=== PATIENT | male | born 1990 | race Caucasian/White ===

== ENCOUNTER → 2016-08-14 | Outpatient (CLI) | payer OTHER ==
[~2016-08-14] MED LIST: FEXO1TAB46 PO; MULTTAB58 PO; NICO21DI4 TD; NXM/40 PO; PRED10TA PO; PROM25TA9 PO; SYMIN160 INH; UMEC1INH INH; WLLSR150 PO
== END | disposition home or self-care (01) ==
LOC: C.LAB 13:07
PROVIDERS: ATTEND Family Medicine
DX: J06.9 Acute upper respiratory infection, unspecified (principal); R50.9 Fever, unspecified

== ENCOUNTER → 2017-04-24 | Outpatient (CLI) | payer OTHER ==
[~2017-04-24] MED LIST changes: -PROM25TA9 PO
--- NOTE | 2017-04-24 17:44 | DIAGNOSTIC IMAGING REPORT ---
CHEST 2 VIEWS ROUTINE CLINICAL HISTORY: ASTHMA EXACERBATION COMPARISON STUDY: 04/25/2015 FINDINGS: The cardiac and mediastinal contours are normal. There is no evidence of focal pulmonary consolidation. There is no evidence of failure. No pleural effusions are visualized.[ IMPRESSION: No active disease in the chest. Electronically signed by: Jun Harrell M.D. 04/24/2017 5:43 PM Dictated Date/Time: 04/24/2017 5:42 PM
== END | disposition home or self-care (01) ==
LOC: C.RAD 17:23
PROVIDERS: ATTEND Family Medicine
DX: J45.901 Unspecified asthma with (acute) exacerbation (principal)

== ENCOUNTER 2017-04-25 16:00 | Inpatient (IN) | payer OTHER ==
[~2017-04-25] VITALS: Ht 185.4 cm; Wt 100.6 kg
[2017-04-25] VITALS (9 sets, daily range): BP systolic 122–139; BP diastolic 66–79; PULSE 57–88; TEMP 36–37; O2SAT 88–97; Ht 185.4 cm; Wt 100.6 kg
[~2017-04-25 16:00] MED LIST changes: -NICO21DI4 TD; -PRED10TA PO; -WLLSR150 PO
[2017-04-25] MEDS ORDERED: SODIUM CHLORIDE 0.9% 1000ML 1,000 ML IV SCH (17:44)
[2017-04-25] MEDS ORDERED: ALBUT/IPRATROP 3MG/0.5MG NEB 3 ML VIAL INH PRN (17:45)
[2017-04-25] MEDS ORDERED: ACETAMINOPHEN 325 MG TAB PO PRN (17:45)
[2017-04-25] MEDS ORDERED: ONDANSETRON INJ 2 MG/ML 2 ML VIAL IV PRN (17:45)
--- NOTE | 2017-04-25 18:02 | History and Physical ---
History & Physical Date & Time of Service: Apr 25, 2017 at 18:01 Chief Complaint: Asthma Exaceration, Failure Of Op Treatment Primary Care Physician: Owen Campbell M.D. History of Present Illness Source: patient, hospital records, friend 26yo male presents as a direct admit from PCM's office today c/o ongoing and worsening SOB. Pt has a hx of asthma, states multiple exacerbations in past year, but last hospitalization was here around Apr 2015. Never been to ICU or intubated for this. Pt states current sx began on 10Sep with a "cold" c/o feeling weak, subj fever and chills, productive cough and nasal d/c of "green- yellow". Says saw PCM on 12Sep, unknown dx but was put on a prednisone taper and azithromycin. Routine f/u on 14Sep after no sx improvement ( not really worse though). Says an ambulatory pulse-ox went poorly. Advised to continue prednisone, stop azithromycin (thus 3d total), started levaquin. Says overnight last night (14-15Sep) felt worse SOB, tried home albuterol neb without relief. Scheduled f/u appt today (15Sep), noted decreased SpO2 in office, transferred here for further eval. On admit here, pt says he's had SOB at rest for past week, not normal for him ( usually SOB only with exertion). Denies recent fevers (last antipyretic use on day of onset). No concurrent CP, abd pain, N/V/D, known rashes, or other acute c/o. Past Medical/Surgical History Medical Problems: (1) Asthma Status: Chronic (2) GERD (gastroesophageal reflux disease) Status: Chronic 3) Obstructive sleep apnea 4) Nicotine use Family History Cancer Hypertension Lung disease Father: Alive, HTN, intestinal perforation Mother: Alive, asthma, ? fatty liver workup ongoing Social History - Drinks 1-2 beers per night, about 5 nights per week, more on weekends. Last drink around 10Sep. Smoking Status: Current Every Day Smoker (1-2 ppd since age 15) Alcohol Use: occasionally Drug Use: none Marital Status: single Housing status: other Occupational Status: employed (works at [employer]) Immunizations History of Influenza Vaccine: No History of Tetanus Vaccine?: Unknown History of Pneumococcal: No History of Hepatitis B Vaccine: Yes Multi-Drug Resistant Organisms History of MDRO: No Allergies Coded Allergies: No Known Allergies (Verified , 10/28/14) Home Medications Scheduled Budesonide/Formoterol Fumarate (Symbicort 160/4.5 Inhaler), 1 PUFF INH BID Esomeprazole Magnesium (Nexium), 40 MG PO DAILY Fexofenadine Hcl (Hollie), 180 MG PO DAILY Multiple Vitamin (Multivitamin), 1 TAB PO DAILY Review of Systems Constitutional: + fever (subjective early), + chills (subjective early) Respiratory: + cough, + sputum, + wheezing, + shortness of breath, + dyspnea on exertion, + dyspnea at rest Cardiovascular: No chest pain, No edema Abdomen: No pain, No nausea, No vomiting, No diarrhea Musculoskeletal: No joint pain, No muscle pain Neurologic: No weakness, No numbness/tingling Integumentary: No rash Physical Exam Vital Signs Date Time Temp Pulse Resp B/P (MAP) Pulse Ox O2 Delivery O2 Flow Rate FiO2 04/25/17 16:49 37.0 88 18 139/78 91 Nasal Cannula 5.0 General Appearance: WD/WN, no apparent distress (speaking in full sentences) ENT: + pertinent finding (dry oral mucous membranes but no post pharyngeal erythema) Neck: supple Respiratory/Chest: no respiratory distress (not acutely), + rales ( questionable at bilateral bases), + wheezing (diffuse, audible in room on deep inspiration), + pertinent finding (coarse breath sounds throughout) Cardiovascular: regular rate, rhythm, no edema, no murmur Abdomen/GI: normal bowel sounds, non tender, soft Neurologic/Psych: alert, normal mood/affect, oriented x 3 Skin: normal color, warm/dry Diagnostics Laboratory Results Results Past 24 Hours Test 04/25/17 17:44 Range/Units Microbiology Results 04/25/17 Gram Stain, Ordered Pending 04/25/17 Sputum Culture, Ordered Pending Impression Assessment and Plan 26yo male with hx multiple asthma exacerbations directly admitted from PCM's office on 15Sep for worsening SOB. SOB: DDx includes acute asthma exacerbation, PNA vs other underlying infectious issues, COPD, underlying pulmonary disease, theoretically heart issue - Pt does not appear in acute respiratory distress on admit. Is initially requiring 5L NC to maintain SpO2 at 91%. Goal SpO2 over 92%, so titrate NC to that goal. Add oxymask if needed. - Initial thought is this is an asthma exacerbation, so primary tx as such. - Pt has already been on azithromycin and levaquin, though not full courses of either. Afebrile by report and here while not on antipyretics. Lungs sound coarse with questionable rales at base. CXR on 14Sep was clear. Will repeat CXR here due to reports of interval worsening. At time of admit, not starting abx until a clearer picture of infection presents itself. [ ] CXR two view [ ] Sputum cultures [ ] CBC, BMP, Mg on admit for baseline. - Started on duonebs q4h scheduled for 24 hours with reassess before then. Same q2h prn SOB. - Started on methylprednisolone 60 mg IV q6h. PMH KEVIN: Pt notes hx of same but non-compliance at home with CPAP (says doesn't like mask). - Ordered CPAP for here for nighttime use. PMH Nicotine use: 1-2 ppd since age 15 - Discussed multiple problems this is causing/can cause. Counseled to quit. Will provide nicotine patch while in hospital. PMH EtOH: Near-daily use at home. States he hasn't had a drink since 10Sep due to illness, thus not as concerned about DT's. Will monitor. DVT prophy: SCD's and frequent ambulation. If not ambulating much, may need to start rx. Code status: Full code Discussed all the above with attending at time of admission. Please see his addendum for further discussion and plan. - JBONNY, PGY1 Family Medicine Level of Care Telemetry Advanced Directives Existing Living Will: No Existing Power of [place]: No Resuscitation Status FULL RESUSCITATION VTE Prophylaxis VTE Risk Assessment Done? Y/N: Yes Risk Level: Low Given or contraindicated: SCD's (and frequent ambulation) Social Service Consult None Apply Resident Tracking Resident Involvement: Resident Care Provided Care Provided: Adult Hospital Medicine (Admit H&P) History Resident Physician Supervision Note: I was present with Dr. Hernandez during the history and exam. I discussed the case with the resident and agree with the findings and plan as documented in the note. Any exceptions or clarifications are listed here. 26 y/o male w/ ~15 pkyr smoking hx, asthma hx, presents with persistent shortness of breath following a URI-like illness over the last 2 wks which has been treated in the outpatient setting w/ azithromycin/levofloxacin and PO prednisone with minimal improvement. Presently, patient feels SOB and wheezing which is worse than when the illness initially developed and has been this level of SOB since yesterday evening. Reports no fevers since day 1 of illness without antipyretics (though has been on steroids). General Appearance: WD/WN, no apparent distress Ears, Nose, Throat: normal ENT inspection, hearing grossly normal, pharynx normal Respiratory: chest non-tender, no respiratory distress (on 5LNC), rales (b/l LL ? worse on the left), rhonchi, wheezing (diffuse scattered wheezing) Cardiovascular: normal peripheral pulses, regular rate, rhythm, no edema, no murmur Gastrointestinal: normal bowel sounds, non tender, soft, no organomegaly Skin Characteristics: normal color, warm/dry Assessment/Plan 26 y/o male h/o asthma and tobacco use presents for worsening SOB Respiratory distress - likely 2/2 asthma exacerbation v. underlying COPD v. PNA v. other organic lung disease - repeat CXR, CBC, BMP; duonebs, solumedrol KEVIN - strongly encouraged use of CPAP, to which he is agreeable Smoking cessation - NRT while in hospital. Discussed potential options, interested in wellbutrin Alcohol use - last drink 5 days previous, no h/o withdrawals - monitor closely
[2017-04-25 18:43] LABS: COMPLETE YES; HEMATOCRIT 42.1 % (42-52); IG% 0.4 %; LYMPH % 8.2 %; LYMPH ABS # 0.85 K/uL (1.2-3.4); MEAN CELL VOLUME 88.8 fL (80-100); MEAN CORPUSCULAR HEMOGLOBIN 31.4 pg (25-34); MEAN CORPUSCULAR HGB CONC 35.4 g/dl (32-36); MEAN PLATELET VOLUME 8.9 fL (7.4-10.4); MONO % 3.5 %; NEUT % 87.9 %; PLATELET COUNT 227 K/uL (130-400); RED BLOOD COUNT 4.74 M/uL (4.7-6.1); WHITE BLOOD COUNT 10.31 K/uL (4.8-10.8)
[2017-04-25 19:00] LABS: BUN/CREATININE RATIO 13.3 (10-20); CALCIUM 9.2 mg/dl (8.5-10.1); CREATININE 0.97 mg/dl (0.60-1.40); MAGNESIUM 2.1 mg/dl (1.8-2.4); POTASSIUM 3.8 mmol/L (3.5-5.1)
[2017-04-25] MEDS: METHYLPREDNISOLONE IV 60 MG in SYRINGE 0 ML IV SCH ×2 (19:16→23:23)
[2017-04-25] MEDS: ALBUT/IPRATROP 3MG/0.5MG NEB 3 ML VIAL INH SCH ×2 (20:54→23:44)
--- NOTE | 2017-04-25 22:03 | DIAGNOSTIC IMAGING REPORT ---
CHEST 2 VIEWS ROUTINE CLINICAL HISTORY: 26 years-old Male presenting with hx asthma, worsening SOB, eval for infiltrate. TECHNIQUE: PA and lateral views of the chest were obtained. COMPARISON: 04/24/2017. FINDINGS: Multiple overlying external leads degrade image quality. Cardiomediastinal silhouette normal. Lungs and pleural spaces clear. Osseous structures normal. Upper abdomen normal. IMPRESSION: 1. No acute cardiopulmonary disease. Electronically signed by: Gregory Bateman M.D. 04/25/2017 10:01 PM Dictated Date/Time: 04/25/2017 10:00 PM
[2017-04-26] VITALS (17 sets, daily range): BP systolic 117–138; BP diastolic 58–80; PULSE 48–108; TEMP 36.5–36.8; O2SAT 88–98
[2017-04-26] MEDS ORDERED: ALBUT/IPRATROP 3MG/0.5MG NEB 3 ML VIAL INH ONE (02:15)
[2017-04-26] MEDS: ALBUT/IPRATROP 3MG/0.5MG NEB 3 ML VIAL INH SCH ×6 (04:00→23:07)
[2017-04-26] MEDS: METHYLPREDNISOLONE IV 60 MG in SYRINGE 0 ML IV SCH ×3 (05:18→17:33)
--- NOTE | 2017-04-26 08:23 | Family Medicine Progress Note ---
Progress Note Date of Service Apr 26, 2017. Subjective Pt evaluation today including: conversation w/ patient, physical exam, chart review, lab review, review of studies, review of inpatient medication list Pain: None reported by patient PO Intake: No issues with PO intake, regular diet Voiding: no voiding problems Patient reports the shortness of breath is a lot better, reports he cannot tolerate his CPAP at night, and reports he brought up some phlegm but did not collect it for sampling. Reports no dyspnea at rest. Constitutional: No see HPI, No fever, No chills, No sweats, No weight loss, No weakness, No fatigue, No problem reported Respiratory: + cough, + sputum, + wheezing, + dyspnea on exertion, No see HPI, No shortness of breath, No dyspnea at rest, No hemoptysis, No problem reported Cardiovascular: No see HPI, No chest pain, No orthopnea, No PND, No edema, No claudication, No palpitations, No problem reported Abdomen: No see HPI, No pain, No nausea, No vomiting, No diarrhea, No constipation, No GI bleeding, No problem reported Neurologic: No see HPI, No memory loss, No paralysis, No weakness, No numbness/tingling, No vertigo, No balance problems, No problem reported Psychiatric: No see HPI, No depression symptoms, No anhedonism, No anxiety, No insomnia, No substance abuse, No problem reported All Other Systems: Reviewed and Negative Medications Current Inpatient Medications Medications (Trade) Dose Ordered Sig/Mayuri Route Start Time Stop Time Status Last Admin Dose Admin Acetaminophen (Tylenol Tab) 650 mg Q4H PRN PO 04/25/17 17:45 05/25/17 17:44 Ondansetron HCl (Zofran Inj) 4 mg Q6H PRN IV 04/25/17 17:45 05/25/17 17:44 Albuterol/ Ipratropium (Duoneb) 3 ml Q4R INH 04/25/17 20:00 05/25/17 19:59 04/26/17 06:59 3 ML Methylprednisolone Sodium Succinate 60 mg/Syringe 0.96 ml @ 1.5 mls/min Q6 IV 04/25/17 19:00 04/27/17 23:59 04/26/17 05:18 1.5 MLS/MIN Nicotine (Nicoderm Cq 21MG Patch) 1 patch QAM TD 04/26/17 09:00 05/26/17 08:59 Miscellaneous (Remove Nicoderm Patch) 1 ea HS N/A 04/26/17 21:00 05/26/17 20:59 Albuterol/ Ipratropium (Duoneb) 3 ml Q2H PRN INH 04/25/17 17:45 05/25/17 17:44 Objective Vital Signs Date Time Temp Pulse Resp B/P (MAP) Pulse Ox O2 Delivery O2 Flow Rate FiO2 04/26/17 07:01 63 16 92 Mask 10.0 04/26/17 05:28 48 95 100 04/26/17 05:27 60 16 88 BiPAP/CPAP 100 04/26/17 04:00 97 BiPAP 100 04/26/17 04:00 36.6 67 20 117/65 (82) 98 BiPAP 04/26/17 01:00 36.5 65 20 124/66 (85) 98 BiPAP 100 04/25/17 23:59 97 BiPAP 100 04/25/17 23:51 57 95 100 04/25/17 23:44 64 16 88 BiPAP/CPAP 5.0 04/25/17 23:08 36.3 57 18 124/66 (85) 90 CPAP 04/25/17 21:17 61 16 94 Nasal Cannula 5.0 04/25/17 21:17 5.0 04/25/17 20:57 61 16 94 Nasal Cannula 5.0 04/25/17 20:00 92 Nasal Cannula 5.0 04/25/17 19:13 36.0 62 18 122/79 (93) 91 Nasal Cannula 5.0 04/25/17 16:49 37.0 88 18 139/78 91 Nasal Cannula 5.0 Physical Exam General Appearance: WD/WN, no apparent distress Eyes: normal inspection, PERRL, EOMI, sclerae normal ENT: hearing grossly normal, pharynx normal Neck: supple, no adenopathy, no JVD, no carotid bruits, trachea midline Respiratory/Chest: chest non-tender, + decreased breath sounds, + wheezing Cardiovascular: regular rate, rhythm, no edema, no JVD, no murmur Abdomen: normal bowel sounds, non tender, soft, no organomegaly Extremities: normal range of motion, non-tender, normal inspection, no pedal edema Neurologic/Psychiatric: alert, normal mood/affect, oriented x 3 Skin: normal color, warm/dry Laboratory Results 04/25/17 18:21 Red Blood Count 4.74, Mean Corpuscular Volume 88.8, Mean Corpuscular Hemoglobin 31.4, Mean Corpuscular Hemoglobin Concent 35.4, Mean Platelet Volume 8.9, Neutrophils (%) (Auto) 87.9, Lymphocytes (%) (Auto) 8.2, Monocytes (%) (Auto) 3.5, Eosinophils (%) (Auto) 0.0, Basophils (%) (Auto) 0.0, Neutrophils # (Auto) 9.06, Lymphocytes # (Auto) 0.85, Monocytes # (Auto) 0.36, Eosinophils # (Auto) 0.00, Basophils # (Auto) 0.00 04/25/17 18:21 Test 04/25/17 18:21 White Blood Count 10.31 K/uL (4.8-10.8) Red Blood Count 4.74 M/uL (4.7-6.1) Hemoglobin 14.9 g/dL (14.0-18.0) Hematocrit 42.1 % (42-52) Mean Corpuscular Volume 88.8 fL (80-100) Mean Corpuscular Hemoglobin 31.4 pg (25-34) Mean Corpuscular Hemoglobin Concent 35.4 g/dl (32-36) Platelet Count 227 K/uL (130-400) Mean Platelet Volume 8.9 fL (7.4-10.4) Neutrophils (%) (Auto) 87.9 % Lymphocytes (%) (Auto) 8.2 % Monocytes (%) (Auto) 3.5 % Eosinophils (%) (Auto) 0.0 % Basophils (%) (Auto) 0.0 % Neutrophils # (Auto) 9.06 K/uL (1.4-6.5) Lymphocytes # (Auto) 0.85 K/uL (1.2-3.4) Monocytes # (Auto) 0.36 K/uL (0.11-0.59) Eosinophils # (Auto) 0.00 K/uL (0-0.5) Basophils # (Auto) 0.00 K/uL (0-0.2) RDW Standard Deviation 40.8 fL (36.4-46.3) RDW Coefficient of Variation 12.6 % (11.5-14.5) Immature Granulocyte % (Auto) 0.4 % Immature Granulocyte # (Auto) 0.04 K/uL (0.00-0.02) Anion Gap 9.0 mmol/L (3-11) Est Creatinine Clear Calc Drug Dose 139.7 ml/min Estimated GFR () 123.5 Estimated GFR (Non- 106.6 BUN/Creatinine Ratio 13.3 (10-20) Calcium Level 9.2 mg/dl (8.5-10.1) Magnesium Level 2.1 mg/dl (1.8-2.4) Assessment and Plan 26yo male with hx multiple asthma exacerbations directly admitted from PCP's office on Apr for worsening SOB. 1) SOB: - DDx includes acute asthma exacerbation, pneumonia vs other underlying infectious issues, COPD, underlying pulmonary disease, theoretically heart issue - Pt did not appear in acute respiratory distress on admit. Initially required 5L NC to maintain SpO2 at 91%. Oxymask added overnight since SpO2 was 88% on NC. - Initial thought is this was an asthma exacerbation, so primary tx as such. - Had up to 10L O2 on oxymask with continuing wheeze in lower lobes of the lungs - By end of day on 04/26 (sat), patient was wheezy on RA with SpO2 of 92 - Patient afebrile on no antipyretics, no elevated WCC, with 2x normal CXR; patient had been on azithromycin and levaquin but did not complete course; no indication to commence Abx at this time. - Sputum cultures pending - Started on duonebs q4h scheduled for 24 hours. Same q2h prn SOB. - Started on methylprednisolone 60 mg IV q6h. 2) PMH KEVIN: Pt notes hx of same but non-compliance at home with CPAP (says doesn 't like mask). - Patient not tolerating CPAP here while in hospital. 2) PMH Nicotine use: 1-2 ppd since age 15 - Discussed multiple problems this is causing/can cause. Counseled to quit. Will provide nicotine patch while in hospital. - Open to discuss options to help him quit - Will discuss welbutrin for mood and smoking cessation tomorrow 4) PMH EtOH: Near-daily use at home. States he hasn't had a drink since 10Sep due to illness, thus not as concerned about DT's. Will monitor. DVT proph: SCD's and frequent ambulation. Code status: Full code DISPO: Remains on telemetry Continued [facility] stay due to: abnormal vital signs Resident Tracking Resident Involvement: Resident Care Provided Care Provided: Adult Hospital Medicine History Resident Physician Supervision Note: I was present with Dr. Hensley during the history and exam. I discussed the case with the resident and agree with the findings and plan as documented in the note. Any exceptions or clarifications are listed here. Pt seen and examined at bedside. Appears mildly agitation/anxious. Reports breathing is improved from prior to admission jose w/ O2 support but is feeling agitated because he feels stuck here while he recovers. Denies any relationship to not smoking presently. 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 Present complaints look similar. General Appearance: WD/WN, no apparent distress Respiratory: chest non-tender, no respiratory distress, decreased breath sounds , wheezing (air movement somewhat improved) Cardiovascular: normal peripheral pulses, regular rate, rhythm, no edema, no murmur Gastrointestinal: normal bowel sounds, non tender, soft, no organomegaly Assessment/Plan 26 y/o male h/o asthma and tobacco use presents for worsening SOB Reactive airway disease (asthma hx v. COPD) - continue steroids, will taper tomorrow IV, continue q4h neb treatments, taper O2 as tolerated KEVIN - CPAP at night Agitation w/ underlying psychiatric hx - minimal improvement w/ 1xPRN lorazepam , monitor, reorient and ?medicate Smoking cessation - NRT while in hospital. Discussed potential options, interested in wellbutrin after discharge Alcohol use - last drink 5 days previous, no h/o withdrawals - monitor closely
[2017-04-26] MEDS: NICOTINE 21 MG/24 HR TDSY TD SCH (08:28)
[2017-04-26] MEDS ORDERED: LORAZEPAM 0.5 MG TAB PO STA ×2 (10:59→19:47)
[2017-04-26] MEDS ORDERED: PANTOprazole SOD 40 MG TAB PO ONE (11:30)
[2017-04-26] MEDS: PANTOprazole SOD 40 MG TAB PO SCH (19:33)
[2017-04-26] MEDS ORDERED: NURSING VERBAL MED ORDER ONE (19:45)
[2017-04-27] VITALS (16 sets, daily range): BP systolic 116–138; BP diastolic 61–79; PULSE 68–119; TEMP 36.4–37; O2SAT 90–99
[2017-04-27] MEDS: METHYLPREDNISOLONE IV 60 MG in SYRINGE 0 ML IV SCH ×2 (00:14→05:38)
[2017-04-27] MEDS: ALBUT/IPRATROP 3MG/0.5MG NEB 3 ML VIAL INH SCH ×6 (03:43→23:10)
[2017-04-27] MEDS: PANTOprazole SOD 40 MG TAB PO SCH ×2 (07:42→19:19)
[2017-04-27] MEDS: NICOTINE 21 MG/24 HR TDSY TD SCH (07:42)
[2017-04-27 10:45] LABS: MEAN CELL VOLUME 91.1 fL (80-100); MEAN CORPUSCULAR HEMOGLOBIN 29.9 pg (25-34); MEAN CORPUSCULAR HGB CONC 32.8 g/dl (32-36); PLATELET COUNT 257 K/uL (130-400); RED BLOOD COUNT 4.72 M/uL (4.7-6.1); WHITE BLOOD COUNT 16.02 K/uL (4.8-10.8)
[2017-04-27 11:14] LABS: BUN/CREATININE RATIO 12.4 (10-20); CALCIUM 8.8 mg/dl (8.5-10.1); CREATININE 1.2 mg/dl (0.60-1.40); POTASSIUM 4.2 mmol/L (3.5-5.1)
--- NOTE | 2017-04-27 15:35 | Family Medicine Progress Note ---
Progress Note Date of Service Apr 27, 2017. Subjective Pt evaluation today including: conversation w/ patient, physical exam, chart review, lab review, review of inpatient medication list Voiding: no voiding problems Patient looking much improved today at bedside. Reports decreased anxiety, improved breathing capacity, on room air, tolerated CPAP well overnight. Constitutional: No fever, No chills, No sweats, No weight loss, No weakness , No fatigue, No problem reported ENT: No hearing loss, No sore throat, No trouble swallowing Respiratory: No cough, No sputum, No wheezing, No shortness of breath, No dyspnea on exertion, No dyspnea at rest, No hemoptysis Cardiovascular: No chest pain, No orthopnea, No PND, No edema, No claudication, No palpitations Abdomen: No nausea, No vomiting, No diarrhea, No constipation Musculoskeletal: No joint pain, No muscle pain Male : No dysuria Neurologic: No numbness/tingling Psychiatric: + anxiety, + substance abuse (cigarettes and alcohol, 5-6 drinks twice weekly), + problem reported (agitation) Medications Current Inpatient Medications Medications (Trade) Dose Ordered Sig/Mayuri Route Start Time Stop Time Status Last Admin Dose Admin Acetaminophen (Tylenol Tab) 650 mg Q4H PRN PO 04/25/17 17:45 05/25/17 17:44 Ondansetron HCl (Zofran Inj) 4 mg Q6H PRN IV 04/25/17 17:45 05/25/17 17:44 Albuterol/ Ipratropium (Duoneb) 3 ml Q4R INH 04/25/17 20:00 05/25/17 19:59 04/27/17 18:58 3 ML Nicotine (Nicoderm Cq 21MG Patch) 1 patch QAM TD 04/26/17 09:00 05/26/17 08:59 04/27/17 07:42 1 PATCH Miscellaneous (Remove Nicoderm Patch) 1 ea HS N/A 04/26/17 21:00 05/26/17 20:59 04/27/17 19:19 1 EA Albuterol/ Ipratropium (Duoneb) 3 ml Q2H PRN INH 04/25/17 17:45 05/25/17 17:44 Pantoprazole Sodium (Protonix Tab) 40 mg BID PO 04/26/17 21:00 05/26/17 20:59 04/27/17 19:19 40 MG Bupropion HCl (Wellbutrin-Sr Tab) 150 mg BID PO 04/27/17 21:00 05/27/17 20:59 04/27/17 19:19 150 MG Prednisone (PredniSONE TAB) 60 mg DAILY PO 04/28/17 09:00 05/28/17 08:59 Objective Vital Signs Date Time Temp Pulse Resp B/P (MAP) Pulse Ox O2 Delivery O2 Flow Rate FiO2 04/27/17 19:39 37.0 112 18 117/65 (82) 91 Room Air 04/27/17 18:58 70 16 90 Room Air 04/27/17 16:08 36.6 80 18 129/78 (95) 95 04/27/17 16:00 Room Air 04/27/17 15:11 111 18 91 Room Air 04/27/17 12:16 36.4 119 18 138/79 (98) 92 Room Air 04/27/17 12:00 Room Air 04/27/17 11:20 76 16 90 Room Air 04/27/17 08:00 Room Air 04/27/17 07:45 78 96 Room Air 04/27/17 07:44 78 18 96 Room Air 04/27/17 07:41 36.6 77 18 116/61 (79) 93 Room Air 04/27/17 04:00 Room Air 04/27/17 04:00 36.7 76 18 123/70 (87) 94 CPAP 04/27/17 03:45 70 93 40 04/27/17 03:43 70 18 94 BiPAP/CPAP 40 04/27/17 01:30 93 40 04/26/17 23:59 Room Air 04/26/17 23:08 71 20 91 Room Air 04/26/17 23:05 36.7 72 18 123/62 (82) 91 Room Air Physical Exam General Appearance: WD/WN, no apparent distress Eyes: normal inspection, PERRL, EOMI ENT: hearing grossly normal, pharynx normal Neck: supple, no adenopathy Respiratory/Chest: chest non-tender, lungs clear, normal breath sounds, no respiratory distress, no accessory muscle use Cardiovascular: regular rate, rhythm, no edema, no JVD, no murmur Abdomen: normal bowel sounds, non tender, soft, no organomegaly Extremities: normal range of motion, no pedal edema, no calf tenderness Neurologic/Psychiatric: air conditioning manager II-XII nml as tested, alert, normal mood/affect, oriented x 3 Skin: normal color, warm/dry, no rash Laboratory Results 04/27/17 10:21 04/27/17 10:21 Test 04/27/17 10:21 Red Blood Count 4.72 M/uL (4.7-6.1) Mean Corpuscular Volume 91.1 fL (80-100) Mean Corpuscular Hemoglobin 29.9 pg (25-34) Mean Corpuscular Hemoglobin Concent 32.8 g/dl (32-36) RDW Standard Deviation 42.1 fL (36.4-46.3) RDW Coefficient of Variation 12.7 % (11.5-14.5) Mean Platelet Volume 9.0 fL (7.4-10.4) Anion Gap 12.0 mmol/L (3-11) Est Creatinine Clear Calc Drug Dose 113.0 ml/min Estimated GFR () 95.5 Estimated GFR (Non- 82.4 BUN/Creatinine Ratio 12.4 (10-20) Calcium Level 8.8 mg/dl (8.5-10.1) Assessment and Plan 26yo male with hx multiple asthma exacerbations directly admitted from PCP's office on Apr for worsening SOB. 1) SOB: - Likely acute asthma exacerbation. - Currently on room air, SpO2 91-96% - Lungs sound greatly improved, mild restriction of airways - Patient afebrile on no antipyretics, no elevated WCC, with 2x normal CXR; no indication to commence Abx at this time. - Sputum cultures found to have normal melissa. - Transitioned to 60 mg solumedrol IV q12; transition to oral prednisone 60 mg daily if tolerates decreased IV dose. - Repeat labs today appropriate for steroid use; repeat labs tomorrow AM - Patient sees Dr. Morales's (pulm) PA Roselia Perez; states he missed appt while in hospital and can we help get him back on schedule? - Recommend PFT testing as outpatient once exacerbation resolved and he is off steroids. - Patient to follow up with either Dr. Hensley or Dr. Hernandez at [facility] clinic Friday pm. 2) Agitation - Started yesterday; may be related to lack of cigarettes or alcohol or his baseline - Wellbutrin will likely help with baseline anxiety - Has required 2x 0.5 mg ativan yesterday prn 3) PMH KEVIN: - Patient tolerated CPAP better last night; continue tonight 4) PMH Nicotine use: 1-2 ppd since age 15 - Discussed multiple problems this is causing/can cause. Counseled to quit. Will provide nicotine patch while in hospital. - Open to discuss options to help him quit - Reports he also "vapes" and makes his own mixes for his vaporizer; discussed this may be used as stepping stone to help quit but should not be considered replacement. - Started on wellbutrin SR 150 bid; discussed potential side effects, including increased risk of suicidality, discussed if this happens he should stop medication and call physician/suicide help line/911. Discussed that he should not drink alcohol while on this medication. - Reiterated to patient that symptoms really improved when he was no longer able to smoke - Discussed that he should also not use dip/chewing tobacco with his friends. 5) PMH EtOH: Near-daily use at home. States he hasn't had a drink since 10Sep due to illness, thus not as concerned about DT's. History Resident Physician Supervision Note: I was present with Dr. Hensley during the history and exam. I discussed the case with the resident and agree with the findings and plan as documented in the note. Any exceptions or clarifications are listed here. Pt seen and examined at bedside. Pt reports improved shortness of breath and decreased frequency and productivity of cough. Ambulating without O2 at present. NRT decreased overt cravings. Agitation persists per family in room and patient agrees w/ same. Is open to using wellbutrin for both quitting and underlying mood disorder with close outpatient followup. General Appearance: WD/WN, no apparent distress Respiratory: chest non-tender, no respiratory distress, decreased breath sounds , wheezing (diffusely, mildly improved from previous) Cardiovascular: normal peripheral pulses, regular rate, rhythm, no edema, no murmur Neurologic/Psychiatric: air conditioning manager II-XII nml as tested, alert, normal mood/affect, oriented x 3 Assessment/Plan 26 y/o male h/o asthma and tobacco use presents for worsening SOB. There is concern, especially with his rapid inpatient improvement, that a lion's share of his symptoms are resulting from his persistent smoking and I have told him as much. He understands but his motivation for quitting is variable. Reactive airway disease (asthma hx v. COPD) - taper to PO prednisone in AM, continue q4h neb treatments, taper O2 as tolerated KEVIN - CPAP at night Agitation w/ underlying psychiatric hx - rec intermittent lorazepam, encourage starting wellbutrin inpatient Smoking cessation - NRT while in hospital. Wellbutrin for cessation aid. Has tried chantix and cold turkey in the past. Alcohol use - last drink 5 days previous, no h/o withdrawals - monitor closely Resident Tracking Resident Involvement: Resident Care Provided Care Provided: Adult Hospital Medicine
[2017-04-27] MEDS ORDERED: METHYLPREDNISOLONE IV 60 MG in SYRINGE 0 ML IV SCH (17:00)
[2017-04-27] MEDS: BuPROPion SR 150 MG TABCR PO SCH (19:19)
[2017-04-28] VITALS (12 sets, daily range): BP systolic 121–145; BP diastolic 65–78; PULSE 16–88; TEMP 36.7–36.8; O2SAT 90–95
[2017-04-28] MEDS: ALBUT/IPRATROP 3MG/0.5MG NEB 3 ML VIAL INH SCH ×6 (03:24→23:34)
--- NOTE | 2017-04-28 05:38 | Family Medicine Progress Note ---
Progress Note Date of Service Apr 28, 2017. Subjective Pt evaluation today including: conversation w/ patient, physical exam, chart review, lab review, review of studies Found pt sitting up in bed, speaking comfortably without supplemental oxygen in full sentences, in NAD. Says he tried his CPAP overnight. Is willing to try Wellbutrin to help quit smoking. Is also willing to f/u this week with PCM. Denies any overnight issues or acute concerns, including any present CP, SOB, abd pain. Constitutional: No fever, No weight loss Respiratory: + cough, + shortness of breath (improving/resolved) Cardiovascular: No chest pain, No edema Abdomen: No pain, No nausea, No vomiting, No diarrhea Medications Current Inpatient Medications Medications (Trade) Dose Ordered Sig/Mayuri Route Start Time Stop Time Status Last Admin Dose Admin Acetaminophen (Tylenol Tab) 650 mg Q4H PRN PO 04/25/17 17:45 05/25/17 17:44 Ondansetron HCl (Zofran Inj) 4 mg Q6H PRN IV 04/25/17 17:45 05/25/17 17:44 Albuterol/ Ipratropium (Duoneb) 3 ml Q4R INH 04/25/17 20:00 05/25/17 19:59 04/28/17 06:59 3 ML Nicotine (Nicoderm Cq 21MG Patch) 1 patch QAM TD 04/26/17 09:00 05/26/17 08:59 04/28/17 07:41 1 PATCH Miscellaneous (Remove Nicoderm Patch) 1 ea HS N/A 04/26/17 21:00 05/26/17 20:59 04/27/17 19:19 1 EA Albuterol/ Ipratropium (Duoneb) 3 ml Q2H PRN INH 04/25/17 17:45 05/25/17 17:44 Pantoprazole Sodium (Protonix Tab) 40 mg BID PO 04/26/17 21:00 05/26/17 20:59 04/28/17 07:41 40 MG Bupropion HCl (Wellbutrin-Sr Tab) 150 mg BID PO 04/27/17 21:00 05/27/17 20:59 04/28/17 07:41 150 MG Prednisone (PredniSONE TAB) 60 mg DAILY PO 04/28/17 09:00 05/28/17 08:59 04/28/17 07:41 60 MG Objective Vital Signs Date Time Temp Pulse Resp B/P (MAP) Pulse Ox O2 Delivery O2 Flow Rate FiO2 04/28/17 08:15 Room Air 04/28/17 08:02 36.7 84 14 126/72 (90) 90 Room Air 04/28/17 06:59 81 16 91 Room Air 04/28/17 04:23 36.7 74 20 124/70 (88) 94 CPAP 04/28/17 04:00 Room Air 04/28/17 03:24 75 16 95 BiPAP/CPAP 40 04/28/17 00:00 36.8 72 20 121/65 (83) 93 CPAP 04/27/17 23:59 Room Air 04/27/17 23:20 80 94 40 04/27/17 23:10 80 16 93 Room Air 04/27/17 20:00 Room Air 04/27/17 19:39 37.0 112 18 117/65 (82) 91 Room Air 04/27/17 18:58 70 16 90 Room Air 04/27/17 16:08 36.6 80 18 129/78 (95) 95 04/27/17 16:00 Room Air 04/27/17 15:11 111 18 91 Room Air 04/27/17 12:16 36.4 119 18 138/79 (98) 92 Room Air 04/27/17 12:00 Room Air 04/27/17 11:20 76 16 90 Room Air Physical Exam General Appearance: no apparent distress Respiratory/Chest: no respiratory distress, + wheezing (expiratory wheezing without congestion/rales throughout (improved from 15Sep)) Cardiovascular: regular rate, rhythm, no edema, no murmur Abdomen: normal bowel sounds, non tender, soft Laboratory Results 04/28/17 05:54 04/28/17 05:54 Test 04/28/17 05:54 Red Blood Count 4.82 M/uL (4.7-6.1) Mean Corpuscular Volume 91.9 fL (80-100) Mean Corpuscular Hemoglobin 30.5 pg (25-34) Mean Corpuscular Hemoglobin Concent 33.2 g/dl (32-36) RDW Standard Deviation 44.1 fL (36.4-46.3) RDW Coefficient of Variation 13.1 % (11.5-14.5) Mean Platelet Volume 9.0 fL (7.4-10.4) Anion Gap 7.0 mmol/L (3-11) Est Creatinine Clear Calc Drug Dose 144.3 ml/min Estimated GFR () 128.3 Estimated GFR (Non- 110.7 BUN/Creatinine Ratio 17.8 (10-20) Calcium Level 9.1 mg/dl (8.5-10.1) Assessment and Plan 26yo male with hx multiple asthma exacerbations directly admitted from PCM's office on 15Sep for worsening SOB. Acute Asthma exacerbation - Started on duonebs q4h scheduled for 24 hours with reassess before then. Same q2h prn SOB. Started on methylprednisolone 60 mg IV q6h. Taper to PO prednisone beginning 18Sep. - Was initially requiring 5L NC to maintain SpO2 at 91% with some subsequent oxymask use (up to 10L). Transitioned off with recent SpO2 92% on room air. - Pt has already been on azithromycin and levaquin as outpatient before getting admitted, though not full courses of either. As inpt, pt remained afebrile, off antipyretics, and CXR x 2 clear so no abx started. Leukocytosis on 17Sep likely due to demargination. - 16Sep Sputum gram stain was moderate normal melissa. Sputum culture cancelled. - pulse ox still around 90-91%. follow overnight. KEVIN: Pt notes hx of same but non-compliance at home with CPAP (says doesn't like mask). - Ordered CPAP for here for nighttime use with some recent mask toleration. Will encourage same as outpt upon eventual d/c. Nicotine use: 1-2 ppd since age 15. Discussed multiple problems this is causing /can cause. Counseled to quit. Provided nicotine patch while in hospital. Inpt team discussed Wellbutrin use for mood and smoking cessation. Reportedly has treid chantix and cold turkey in the past. - Started Welbutrin-SR 150 mg BID as inpt. EtOH use: Near-daily use at home. States he hasn't had a drink since 10Sep due to illness, thus not as concerned about DT's. Will monitor. 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 Present complaints look similar. Noted to have some agitation while inpt. - Tx here with ativan prn (single dose needed thus far) along with reorientation. - ? sec to hypoxia - follow. DVT prophy: SCD's and frequent ambulation. If not ambulating much, may need to start rx. Code status: Full code Resident Tracking Resident Involvement: Resident Care Provided Care Provided: Adult Hospital Medicine (inpt rounds) Reviewed: Pt Seen/Exam by Me History breathing much better but still not at baseline Constitutional: denies: fever Cardiovascular: denies chest pain Gastrointestinal/Abdominal: negative: abdominal pain General Appearance: mild distress (conversation dyspnea) Respiratory: respiratory distress (conversational), decreased breath sounds, wheezing (occasional) Cardiovascular: regular rate, rhythm Neurologic/Psychiatric: alert, oriented x 3 Skin Characteristics: warm/dry Assessment/Plan Resident Physician Supervision Note: I was present with Dr. Hernandez in bedside. I verified the fonseca history and physical, reviewed labs and image studies, discussed the case with the resident and agree with the findings and care plan.
[2017-04-28 06:20] LABS: HEMATOCRIT 44.3 % (42-52); MEAN CELL VOLUME 91.9 fL (80-100); MEAN CORPUSCULAR HEMOGLOBIN 30.5 pg (25-34); MEAN CORPUSCULAR HGB CONC 33.2 g/dl (32-36); PLATELET COUNT 243 K/uL (130-400); RED BLOOD COUNT 4.82 M/uL (4.7-6.1)
[2017-04-28 07:04] LABS: BUN/CREATININE RATIO 17.8 (10-20); CALCIUM 9.1 mg/dl (8.5-10.1); CREATININE 0.94 mg/dl (0.60-1.40); POTASSIUM 4.3 mmol/L (3.5-5.1)
[2017-04-28] MEDS: NICOTINE 21 MG/24 HR TDSY TD SCH (07:41)
[2017-04-28] MEDS: PANTOprazole SOD 40 MG TAB PO SCH ×2 (07:41→21:34)
[2017-04-28] MEDS: BuPROPion SR 150 MG TABCR PO SCH ×2 (07:41→21:34)
--- NOTE | 2017-04-28 15:59 | Discharge Summary ---
Discharge Summary Date of Service Apr 28, 2017. (Josh. Hernandez M.D.) Discharge Summary Admission Date: Apr 25, 2017 at 17:59 Discharge Disposition: Home Principal Diagnosis: Asthma exacerbation Problems/Secondary Diagnoses: - Nicotine use Immunizations: Have You Had Influenza Vaccine: No History of Tetanus Vaccine?: Unknown History of Pneumococcal: No History of Hepatitis B Vaccine: Yes Procedures: [id number] CXR two views: No acute cardiopulmonary disease. Consultations: - None (Josh. Hernandez M.D.) Medication Reconciliation New Medications: Prednisone (Prednisone) 10 Mg Tab 10 MG PO UD for 12 Days, #23 TAB 0 Refills Take 4 tablets x 3 days, then 2 tablets x 3 days, then 1 tablet x 3 days, then a half-tablet for three days. Bupropion HCl (Bupropion HCl Sr) 150 Mg Tabcr 150 MG PO BID for 30 Days, #60 TAB 0 Refills Nicotine (Nicoderm Cq) 21 Mg/24 Hr Dis 1 PATCH TD QAM for 30 Days, #30 PATCH 0 Refills Continued Medications: Budesonide/Formoterol Fumarate (Symbicort 160/4.5 Inhaler) 120 Puffs/ Aero 1 PUFF INH BID Esomeprazole Magnesium (Nexium) 40 Mg Capcr 40 MG PO DAILY Fexofenadine Hcl (Hollie) 180 Mg Tab 180 MG PO DAILY Multiple Vitamin (Multivitamin) 1 Tab Tab 1 TAB PO DAILY Discharge Exam Review of Systems: Constitutional: No fever, No chills Respiratory: + cough (much improved), + shortness of breath (much improved) , No dyspnea at rest Cardiovascular: No chest pain, No edema Abdomen: No nausea, No vomiting, No diarrhea, No constipation Physical Exam: General Appearance: WD/WN, no apparent distress Respiratory/Chest: no respiratory distress, no accessory muscle use, + wheezing (much improved generalized wheezing), + pertinent finding (no other adventitious sounds appreciated) Cardiovascular: regular rate, rhythm, no edema, no murmur Abdomen / GI: normal bowel sounds, non tender, soft Extremities: no calf tenderness, normal range of motion Neurologic/Psychiatric: alert (Josh. Hernandez M.D.) breathing improving. able to walk around without any difficulty Review of Systems: Constitutional: No fever Cardiovascular: No chest pain Abdomen: No pain Physical Exam: General Appearance: no apparent distress Respiratory/Chest: + decreased breath sounds (but better air entry than yesterday. no wheezes) Cardiovascular: regular rate, rhythm Neurologic/Psychiatric: alert, oriented x 3 Skin: warm/dry (Nicole Mobley M.D.) Hospital Course History of Present Illness from Admission on [id number] Source: patient, hospital records, friend 26yo male presents as a direct admit from PCM's office today c/o ongoing and worsening SOB. Pt has a hx of asthma, states multiple exacerbations in past year, but last hospitalization was here around Apr 2015. Never been to ICU or intubated for this. Pt states current sx began on 10Sep with a "cold" c/o feeling weak, subj fever and chills, productive cough and nasal d/c of "green- yellow". Says saw PCM on 12Sep, unknown dx but was put on a prednisone taper and azithromycin. Routine f/u on 14Sep after no sx improvement ( not really worse though). Says an ambulatory pulse-ox went poorly. Advised to continue prednisone, stop azithromycin (thus 3d total), started levaquin. Says overnight last night (14-15Sep) felt worse SOB, tried home albuterol neb without relief. Scheduled f/u appt today (15Sep), noted decreased SpO2 in office, transferred here for further eval. On admit here, pt says he's had SOB at rest for past week, not normal for him ( usually SOB only with exertion). Denies recent fevers (last antipyretic use on day of onset). No concurrent CP, abd pain, N/V/D, known rashes, or other acute c/o. Plan on day of discharge [id number] 26yo male with hx multiple asthma exacerbations directly admitted from PCM's office on 15Sep for worsening SOB. Acute asthma exacerbation: DDx includes acute asthma exacerbation, PNA vs other underlying infectious issues, COPD, underlying pulmonary disease, theoretically heart issue. Primary tx was for asthma exacerbation. Pt did not appear in acute respiratory distress on admit. Started on duonebs q4h scheduled for 24 hours. Same duonebs ordered q2h prn SOB, though pt did not require any. Started on methylprednisolone 60 mg IV q6h. Taper to PO prednisone beginning 18Sep, completed five days of steroids on 19Sep, will begin taper as outpt. Was initially requiring 5L NC to maintain SpO2 at 91% with some subsequent oxymask use (up to 10L). Transitioned off, did ambulatory SpO2 check on 18Sep and was noted 90-91% on room air during exertion. Goal ideally would be over 92 % with ambulation, but was noted to have 92% on rest at time of d/c. Pt had already been on azithromycin and levaquin, though not full courses of either. As inpt, pt remained afebrile, off antipyretics, and CXR x 2 clear so no abx started. Leukocytosis on 17Sep likely due to demargination. - 16Sep Sputum gram stain was moderate normal melissa. Sputum culture cancelled. - Provided written Rx for nebulizer setup, two per month, with six refills for pts home use. - Pt may have been on Incruse Ellipta in the past. Suggest eval for future use at [facility] f/u. KEVIN: Pt notes hx of same but non-compliance at home with CPAP (says doesn't like mask). Pt says hes been using CPAP in hospital for nighttime use with some mask toleration. - Encouraged same as outpt upon eventual d/c. Nicotine use: 1-2 ppd since age 15. Discussed multiple problems this is causing /can cause. Counseled to quit. Provided nicotine patch while in hospital, rx' ed same for home. Inpt team discussed Wellbutrin use for mood and smoking cessation. Reportedly has tried chantix and cold turkey in the past. Started Wellbutrin-SR 150 mg BID as inpt, rx'ed same for home. EtOH: Near-daily use at home. States he hasn't had a drink since 10Sep due to illness, thus not as concerned about DT's. Provided some counseling against excessive near-daily use. Will monitor. 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 Present complaints look similar. Noted to have some agitation while inpt. Tx here with ativan single dose without recurrent issues of the same. Plan for close f/u as outpt with PCM for further care of all the above. Total Time Spent: Greater than 30 minutes This includes examination of the patient, discharge planning, medication reconciliation, and communication with other providers. (Josh. Hernandez M.D.) Resident Physician Supervision Note: I was present with Dr. Hernandez in bedside. I verified the fonseca history and physical, reviewed labs and image studies, discussed the case with the resident and agree with the findings and care plan. Total Time Spent: Greater than 30 minutes (40) (Nicole Mobley M.D.) Discharge Instructions Please refer to the electronic Patient Visit Report (Discharge Instructions) for additional information. (Josh. Hernandez M.D.) Follow-Up - Primary care provider (Josh. Hernandez M.D.) Additional Copies To Owen Campbell M.D.
[2017-04-29 00:12] VITALS: BP 124/65; PULSE 66; TEMP 36.7; O2SAT 96
[2017-04-29 03:05] VITALS: BP 127/70; PULSE 70; TEMP 36.9; O2SAT 95
[2017-04-29 03:15] VITALS: PULSE 66; O2SAT 96
[2017-04-29] MEDS: ALBUT/IPRATROP 3MG/0.5MG NEB 3 ML VIAL INH SCH ×2 (03:15→07:04)
--- NOTE | 2017-04-29 05:31 | Family Medicine Progress Note ---
Progress Note Date of Service Apr 29, 2017. Subjective Pt evaluation today including: conversation w/ patient, physical exam, chart review, lab review Found pt sitting up, getting a neb, speaking easily in full sentences. Denies acute concerns, overnight events, CP, baseline SOB. Constitutional: No fever, No chills Respiratory: + shortness of breath (much improved), + dyspnea on exertion ( much improved), No cough Cardiovascular: No chest pain, No edema Abdomen: No pain, No nausea, No vomiting, No diarrhea Medications Current Inpatient Medications Medications (Trade) Dose Ordered Sig/Mayuri Route Start Time Stop Time Status Last Admin Dose Admin Acetaminophen (Tylenol Tab) 650 mg Q4H PRN PO 04/25/17 17:45 05/25/17 17:44 Ondansetron HCl (Zofran Inj) 4 mg Q6H PRN IV 04/25/17 17:45 05/25/17 17:44 Albuterol/ Ipratropium (Duoneb) 3 ml Q4R INH 04/25/17 20:00 05/25/17 19:59 04/29/17 07:04 3 ML Nicotine (Nicoderm Cq 21MG Patch) 1 patch QAM TD 04/26/17 09:00 05/26/17 08:59 04/29/17 07:46 1 PATCH Miscellaneous (Remove Nicoderm Patch) 1 ea HS N/A 04/26/17 21:00 05/26/17 20:59 04/28/17 21:00 1 EA Albuterol/ Ipratropium (Duoneb) 3 ml Q2H PRN INH 04/25/17 17:45 05/25/17 17:44 Pantoprazole Sodium (Protonix Tab) 40 mg BID PO 04/26/17 21:00 05/26/17 20:59 04/29/17 07:45 40 MG Bupropion HCl (Wellbutrin-Sr Tab) 150 mg BID PO 04/27/17 21:00 05/27/17 20:59 04/29/17 07:45 150 MG Prednisone (PredniSONE TAB) 60 mg DAILY PO 04/28/17 09:00 05/28/17 08:59 04/29/17 07:45 60 MG Objective Vital Signs Date Time Temp Pulse Resp B/P (MAP) Pulse Ox O2 Delivery O2 Flow Rate FiO2 04/29/17 07:17 36.6 89 18 123/79 (94) 94 Nebulizer 04/29/17 07:04 74 16 92 Room Air 04/29/17 04:05 BiPAP 40 04/29/17 03:15 66 16 96 BiPAP/CPAP 40.0 04/29/17 03:05 36.9 70 16 127/70 (89) 95 04/29/17 00:12 36.7 66 22 124/65 (84) 96 BiPAP 40 04/29/17 00:00 BiPAP 40 04/28/17 23:35 70 16 95 BiPAP/CPAP 40.0 04/28/17 23:35 95 40 04/28/17 20:00 Room Air 04/28/17 19:54 36.7 74 16 130/68 (88) 93 Room Air 04/28/17 19:04 72 16 93 Room Air 04/28/17 16:15 Room Air 04/28/17 16:02 36.7 74 20 129/78 (95) 93 Room Air 04/28/17 15:18 88 16 93 Room Air 04/28/17 12:15 Room Air 04/28/17 11:14 78 16 94 Room Air 04/28/17 11:02 36.7 67 14 145/75 (98) 92 Room Air 04/28/17 09:59 Room Air 04/28/17 08:15 Room Air 04/28/17 08:02 36.7 84 14 126/72 (90) 90 Room Air Physical Exam General Appearance: WD/WN, no apparent distress Respiratory/Chest: lungs clear, normal breath sounds, no respiratory distress Cardiovascular: regular rate, rhythm, no edema, no murmur Abdomen: normal bowel sounds, non tender, soft Extremities: normal range of motion, non-tender Assessment and Plan 26yo male with hx multiple asthma exacerbations directly admitted from PCM's office on 15Sep for worsening SOB. Acute asthma exacerbation: DDx includes acute asthma exacerbation, PNA vs other underlying infectious issues, COPD, underlying pulmonary disease, theoretically heart issue. Initial thought is this is an asthma exacerbation, so primary tx as such. Pt did not appear in acute respiratory distress on admit. - Started on duonebs q4h scheduled for 24 hours. Same duonebs ordered q2h prn SOB, though pt did not require any. Started on methylprednisolone 60 mg IV q6h. Taper to PO prednisone beginning 18Sep. - Was initially requiring 5L NC to maintain SpO2 at 91% with some subsequent oxymask use (up to 10L). Transitioned off, did ambulatory SpO2 check on 18Sep and was noted 90-91% on room air during exertion. Goal ideally would be over 92 % with ambulation. - Pt has already been on azithromycin and levaquin, though not full courses of either. As inpt, pt remained afebrile, off antipyretics, and CXR x 2 clear so no abx started. Leukocytosis on 17Sep likely due to demargination. - 16Sep Sputum gram stain was moderate normal melissa. Sputum culture cancelled. - Provided written Rx for nebulizer setup, two per month, with six refills for pts home use. KEVIN: Pt notes hx of same but non-compliance at home with CPAP (says doesn't like mask). Pt says hes been using CPAP in hospital for nighttime use with some mask toleration. Will encourage same as outpt upon eventual d/c. Nicotine use: 1-2 ppd since age 15. Discussed multiple problems this is causing /can cause. Counseled to quit. Provided nicotine patch while in hospital. Inpt team discussed Wellbutrin use for mood and smoking cessation. Reportedly has tried chantix and cold turkey in the past. Started Wellbutrin-SR 150 mg BID as inpt. EtOH: Near-daily use at home. States he hasn't had a drink since 10Sep due to illness, thus not as concerned about DT's. Provided some counseling against excessive near-daily use. Will monitor. 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 Present complaints look similar. Noted to have some agitation while inpt. - Tx here with ativan prn (single dose needed thus far) along with reorientation. DVT prophy: SCD's and frequent ambulation. If not ambulating much, may need to start rx. Code status: Full code Will discuss all the above on attending rounds this morning. ROLANDO, PGY1 Animal Breeder Tracking Resident Involvement: Resident Care Provided Care Provided: Adult Hospital Medicine (inpt rounds)
[2017-04-29 07:04] VITALS: PULSE 74; O2SAT 92
[2017-04-29 07:17] VITALS: BP 123/79; PULSE 89; TEMP 36.6; O2SAT 94
[2017-04-29] MEDS: PANTOprazole SOD 40 MG TAB PO SCH (07:45)
[2017-04-29] MEDS: BuPROPion SR 150 MG TABCR PO SCH (07:45)
[2017-04-29] MEDS: NICOTINE 21 MG/24 HR TDSY TD SCH (07:46)
--- NOTE | 2017-04-29 09:41 | Discharge Instructions ---
Discharge Instructions Date of Service Apr 29, 2017. Admission Reason for Admission: Asthma Exaceration, Failure Of Op Treatment Discharge Discharge Diagnosis / Problem: Asthma exacerbation, failure of outpatient treatment Discharge Goals Goal(s): Improve function, Increase independence Activity Recommendations Activity Limitations: per Instructions/Follow-up section Exercise/Sports Limitations: as tolerated . Instructions / Follow-Up Instructions / Follow-Up You were admitted to the hospital for an asthma exacerbation after failure of outpatient treatment. - You have a new prescription for prednisone, Wellbutrin, and nicotine patches. - Please follow up with your primary care provider tomorrow (Friday, Apr 30) for follow-up care and ongoing management, including adjustments of your medication as needed. - It is important that you use your CPAP at night. Talk with your doctor about finding a mask and equipment that works for you. - Quitting smoking is particularly important for you, as discussed, due to risk of ongoing irreversible lung disease. - Daily alcohol use can also be dangerous long-term, particularly to your liver. Discuss the same with your doctor for ongoing tracking. - Try to avoid excessive activity and exposure to things in the environment that might cause you allergies, particularly until you feel back to 100% with your breathing. Return to the nearest emergency department if you have any acute worsening of your breathing, any chest pain, or with any acute concerns. Current Hospital Diet Patient's current hospital diet: Regular Diet Discharge Diet Recommended Diet: Regular Diet Procedures Procedures Performed: Chest x-ray. Pending Studies Studies pending at discharge: no Medical Emergencies . Who to Call and When: Medical Emergencies: If at any time you feel your situation is an emergency, please call 911 immediately. . Non-Emergent Contact Non-Emergency issues call your: Primary Care Provider . . "Provider Documentation" section prepared by Guzman Hernandez. . VTE Core Measure Inpt VTE Proph given/why not?: SCD's (and frequent ambulation)
[2017-04-29] MEDS ORDERED: NICO21DI4 TD (09:44)
[2017-04-29] MEDS ORDERED: WLLSR150 PO (09:44)
[2017-04-29] MEDS ORDERED: PRED10TA PO (10:39)
[2017-04-29 10:51] VITALS: BP_SYST 123; BP_SYST 127; BP_DIAS 73; BP_DIAS 79; PULSE 72; PULSE 89; TEMP 36.6; TEMP 36.8; O2SAT 93; O2SAT 94
== END 2017-04-29 11:20 | disposition home or self-care (01) | DRG 203 ==
LOC: C.2E 16:30 → UNDOADMIN 16:30 → C.2E 17:59
PROVIDERS: ADMIT Family Medicine; ATTEND Family Medicine
DX: J45.901 Unspecified asthma with (acute) exacerbation (principal); R45.1 Restlessness and agitation; G47.33 Obstructive sleep apnea (adult) (pediatric); K21.9 Gastro-esophageal reflux disease without esophagitis; F17.210 Nicotine dependence, cigarettes, uncomplicated; Z79.899 Other long term (current) drug therapy; Z91.19 Patient's noncompliance with other medical treatment and regimen; Z72.89 Other problems related to lifestyle

== ENCOUNTER 2017-06-01 00:31 | Emergency (ER) | payer OTHER ==
[~2017-06-01] VITALS: Ht 185.4 cm; Wt 102.0 kg
[~2017-06-01 00:31] MED LIST changes: +NICO21DI4 TD; +PRED10TA PO; -UMEC1INH INH; +WLLSR150 PO
[2017-06-01 00:35] VITALS: TEMP 36.6; Ht 185.4 cm; Wt 102.0 kg
[2017-06-01] MEDS ORDERED: XYLOCAINE 1%/SOD BICARB 20 ML VIAL INFIL ONE (01:15)
[2017-06-01 02:06] LABS: BUN/CREATININE RATIO 9.9 (10-20); CREATININE 1.29 mg/dl (0.60-1.40)
[2017-06-01 02:24] VITALS: BP 120/73; PULSE 80; O2SAT 96
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
== END 2017-06-01 03:18 | disposition home or self-care (01) ==
LOC: EDBD 00:31 → C.EDC 00:33
DX: S01.511A Laceration without foreign body of lip, initial encounter (principal); S02.2XXA Fracture of nasal bones, initial encounter for closed fracture; Y04.0XXA Assault by unarmed brawl or fight, initial encounter; Y92.89 Other specified places as the place of occurrence of the external cause; J45.909 Unspecified asthma, uncomplicated; J44.9 Chronic obstructive pulmonary disease, unspecified; Z79.899 Other long term (current) drug therapy

== ENCOUNTER 2017-11-06 22:05 | Emergency (ER) | payer OTHER ==
[~2017-11-06 22:05] MED LIST changes: +HYDR-5688 PO; -NICO21DI4 TD; -PRED10TA PO; +VNTHFA/IN INH; -WLLSR150 PO
[2017-11-06 22:29] VITALS: O2SAT 93
[2017-11-06] MEDS ORDERED: SODIUM CHLORIDE 0.9% 1000ML 1,000 ML IV STA (22:40)
[2017-11-06] MEDS ORDERED: ACETAMINOPHEN 500 MG TAB PO STA (22:40)
[2017-11-06] MEDS ORDERED: ALBUT/IPRATROP 3MG/0.5MG NEB 3 ML VIAL INH STA (22:40)
[2017-11-06] MEDS ORDERED: BUDESONIDE/FORMOTEROL FUMARATE 160/4.5 60 PUFFS/INHALER INH STA (22:42)
[2017-11-06] MEDS ORDERED: DEXAMETHASONE **PF** INJ 10 MG/ML VIAL IV ONE (22:45)
[2017-11-06 23:11] LABS: INFLUENZA B ANTIGEN Neg for Influ B (NEG)
[2017-11-06 23:31] LABS: BASO % 0.2 %; BASO ABS # 0.02 K/uL (0-0.2); EOS % 1.5 %; EOS ABS # 0.13 K/uL (0-0.5); HEMATOCRIT 41.4 % (42-52); HEMOGLOBIN 14.6 g/dL (14.0-18.0); IG# 0.02 K/uL (0.00-0.02); LYMPH % 15.3 %; LYMPH ABS # 1.36 K/uL (1.2-3.4); MEAN CELL VOLUME 87.5 fL (80-100); MEAN CORPUSCULAR HEMOGLOBIN 30.9 pg (25-34); MEAN CORPUSCULAR HGB CONC 35.3 g/dl (32-36); MEAN PLATELET VOLUME 8.9 fL (7.4-10.4); MONO % 8.9 %; MONO ABS # 0.79 K/uL (0.11-0.59); NEUT % 73.9 %; NEUT ABS # 6.59 K/uL (1.4-6.5); PLATELET COUNT 201 K/uL (130-400); RED CELL DISTRIBUTION WIDTH SD 41.9 fL (36.4-46.3); WHITE BLOOD COUNT 8.91 K/uL (4.8-10.8)
[2017-11-06] MEDS ORDERED: CEFTRIAXONE SOD INJ 1 GM ADDVIAL IV STA (23:54)
[2017-11-06 23:57] LABS: ALBUMIN 3.9 gm/dl (3.4-5.0); ALT/SGPT 64 U/L (12-78); AST/SGOT 27 U/L (15-37); BLOOD UREA NITROGEN 13 mg/dl (7-18); CALCIUM 8.8 mg/dl (8.5-10.1); CARBON DIOXIDE 28 mmol/L (21-32); CREATININE 0.96 mg/dl (0.60-1.40); GLUCOSE 92 mg/dl (70-99); POTASSIUM 3.9 mmol/L (3.5-5.1); SODIUM 140 mmol/L (136-145)
[2017-11-06 23:59] LABS: ALKALINE PHOSPHATASE 64 U/L (45-117); TOTAL PROTEIN 7.5 gm/dl (6.4-8.2)
[2017-11-07] MEDS ORDERED: AMOXICILLIN 250 MG CAP PO STA (00:55)
[2017-11-07] MEDS ORDERED: AZITHROMYCIN 250 MG TAB PO STA (00:55)
[2017-11-07] MEDS ORDERED: IBUPROFEN 800 MG TAB PO STA (01:11)
[2017-11-07 01:19] VITALS: BP 132/70; PULSE 84; TEMP 37.2; O2SAT 94
[2017-11-07] MEDS ORDERED: AZIT250T PO (01:26)
[2017-11-07] MEDS ORDERED: AMOX500C3 PO (01:26)
--- NOTE | 2017-11-07 01:40 | EMERGENCY ROOM VISIT NOTE ---
History First contact with patient: 22:35 Chief Complaint: RESPIRATORY PROBLEMS Stated Complaint: CHEST PAIN,SOB,FEVER Nursing Triage Summary: patient with cough congestion and fever for three days. "states he feels like " History of Present Illness The patient is a 27 year old male who presents to the Emergency Room with complaints of cough, congestion, fever, chills and wheezing the past 3 days. Patient has asthma. He is out of his Symbicort. He has been around sick people. Patient denies chest pain, neck stiffness, sore throat, abdominal pain , vomiting, diarrhea. He is tolerating p.o. fluids with the lack of appetite. No Motrin today. Tylenol at 2 PM. Review of Systems An 10 system review of systems was completed with positives and pertinent negatives listed in the HPI. Past Medical/Surgical History Medical Problems: (1) Asthma (2) GERD (gastroesophageal reflux disease) Family History Cancer Hypertension Lung disease Social History Smoking Status: Current Every Day Smoker Alcohol Use: occasionally Drug Use: none Marital Status: single Housing Status: lives with family Occupation Status: employed Current/Historical Medications Scheduled Amoxicillin (Amoxil), 1,000 MG PO BID Azithromycin (Zithromax), 250 MG PO DAILY Budesonide/Formoterol Fumarate (Symbicort 160/4.5 Inhaler), 1 PUFF INH BID Esomeprazole Magnesium (Nexium), 40 MG PO QAM Fexofenadine Hcl (Hollie), 180 MG PO QAM Multiple Vitamin (Multivitamin), 1 TAB PO DAILY Scheduled PRN Albuterol Hfa (Ventolin Hfa), 2-4 PUFFS INH Q6H PRN for Shortness of Breath Physical Exam Vital Signs Date Time Temp Pulse Resp B/P (MAP) Pulse Ox O2 Delivery O2 Flow Rate FiO2 11/07/17 01:19 37.2 84 22 132/70 94 Room Air 11/07/17 00:18 91 18 148/75 11/06/17 23:15 99 20 165/112 93 Room Air 11/06/17 22:38 93 Room Air 11/06/17 22:29 93 Room Air 11/06/17 22:12 90 Room Air 11/06/17 22:09 37.2 102 20 148/90 90 Room Air Physical Exam PHYSICAL EXAM: Vital Signs: Reviewed Nurse's notes. Oxygen saturation was 94% on room air, febrile. GENERAL: Pleasant male mildly ill-appearing, Alert, oriented and coherent. The patient is able to speak in complete sentences. NECK : Supple, non-tender. CHEST: Symmetrical expansion. no retractions no accessory muscle use. HEART: Regular rate and normal heart sounds, no murmur, gallop or rub. LUNGS: Breath sounds equal but significantly diminished in intensity on both sides. Bilateral wheezes heard but no rales or pleuritic rub. SKIN: The skin was without rashes, erythema, edema, or bruising. There is no tenting of the skin. Capillary reflex less than 2 seconds. HEAD: Normocephalic atraumatic. EARS: External auditory canals clear, tympanic membranes pearly lombardo without erythema or effusion bilaterally. EYES: Pupils equal round and reactive to light and accommodation. Conjunctivae without injection, sclerae without icterus. Extraocular movements intact. NOSE: Patent, turbinates without inflammation or discharge. No sinus tenderness. MOUTH: Mucous membranes moist. Pharynx without erythema or exudate. Uvula midline. Airway patent. Tongue does not deviate. ABDOMEN: Positive bowel sounds x 4. Normal tympanic percussion. Soft, nontender, without masses or organomegaly. Guerra sign negative. No guarding or rebound tenderness. MUSCULOSKELETAL: No muscle atrophy, erythema, or edema noted. NEURO: Patient was alert and oriented to person place and time. Normal sensation to light and sharp touch. No focal neurological deficits. Medical Decision & Procedures Laboratory Results 11/06/17 23:15 Red Blood Count 4.73, Mean Corpuscular Volume 87.5, Mean Corpuscular Hemoglobin 30.9, Mean Corpuscular Hemoglobin Concent 35.3, Mean Platelet Volume 8.9, Neutrophils (%) (Auto) 73.9, Lymphocytes (%) (Auto) 15.3, Monocytes (%) (Auto) 8.9, Eosinophils (%) (Auto) 1.5, Basophils (%) (Auto) 0.2, Neutrophils # (Auto) 6.59, Lymphocytes # (Auto) 1.36, Monocytes # (Auto) 0.79, Eosinophils # (Auto) 0.13, Basophils # (Auto) 0.02 11/06/17 23:15 Test 11/06/17 22:35 11/06/17 23:15 Influenza Type A Antigen Neg for Influ A (NEG) Influenza Type B Antigen Neg for Influ B (NEG) White Blood Count 8.91 K/uL (4.8-10.8) Red Blood Count 4.73 M/uL (4.7-6.1) Hemoglobin 14.6 g/dL (14.0-18.0) Hematocrit 41.4 % (42-52) Mean Corpuscular Volume 87.5 fL (80-100) Mean Corpuscular Hemoglobin 30.9 pg (25-34) Mean Corpuscular Hemoglobin Concent 35.3 g/dl (32-36) Platelet Count 201 K/uL (130-400) Mean Platelet Volume 8.9 fL (7.4-10.4) Neutrophils (%) (Auto) 73.9 % Lymphocytes (%) (Auto) 15.3 % Monocytes (%) (Auto) 8.9 % Eosinophils (%) (Auto) 1.5 % Basophils (%) (Auto) 0.2 % Neutrophils # (Auto) 6.59 K/uL (1.4-6.5) Lymphocytes # (Auto) 1.36 K/uL (1.2-3.4) Monocytes # (Auto) 0.79 K/uL (0.11-0.59) Eosinophils # (Auto) 0.13 K/uL (0-0.5) Basophils # (Auto) 0.02 K/uL (0-0.2) RDW Standard Deviation 41.9 fL (36.4-46.3) RDW Coefficient of Variation 13.0 % (11.5-14.5) Immature Granulocyte % (Auto) 0.2 % Immature Granulocyte # (Auto) 0.02 K/uL (0.00-0.02) Anion Gap 8.0 mmol/L (3-11) Estimated GFR () 124.2 Estimated GFR (Non- 107.1 BUN/Creatinine Ratio 13.9 (10-20) Calcium Level 8.8 mg/dl (8.5-10.1) Total Bilirubin 0.4 mg/dl (0.2-1) Direct Bilirubin < 0.1 mg/dl (0-0.2) Aspartate Amino Transf (AST/SGOT) 27 U/L (15-37) Alanine Aminotransferase (ALT/SGPT) 64 U/L (12-78) Alkaline Phosphatase 64 U/L (45-117) Total Protein 7.5 gm/dl (6.4-8.2) Albumin 3.9 gm/dl (3.4-5.0) Medications Administered Medications (Trade) Dose Ordered Sig/Mayuri Route Start Time Stop Time Status Last Admin Dose Admin Sodium Chloride 1,000 ml @ 999 mls/hr Q1H1M STAT IV 11/06/17 22:40 11/06/17 23:40 DC 11/06/17 23:06 999 MLS/HR Dexamethasone Sodium Phosphate (Dexamethasone Inj Pf) 10 mg NOW ONCE IV 11/06/17 22:45 11/06/17 22:46 DC 11/06/17 23:06 10 MG Acetaminophen (Tylenol Tab) 1,000 mg NOW STAT PO 11/06/17 22:40 11/06/17 22:42 DC 11/06/17 23:06 1,000 MG Albuterol/ Ipratropium (Duoneb) 3 ml NOW STAT INH 11/06/17 22:40 11/06/17 22:42 DC 11/06/17 23:06 3 ML Budesonide/ Formoterol Fumarate (Symbicort 160/ 4.5 Inh) 2 puffs NOW STAT INH 11/06/17 22:42 11/06/17 22:43 DC 11/06/17 23:11 2 PUFFS Ceftriaxone Sodium (Rocephin Inj) 1 gm NOW STAT IV 11/06/17 23:54 11/06/17 23:56 DC 11/07/17 00:15 1 GM Azithromycin (Zithromax Tab) 500 mg NOW STAT PO 11/07/17 00:55 11/07/17 00:56 DC 11/07/17 01:11 500 MG Amoxicillin (Amoxil Cap) 1,000 mg NOW STAT PO 11/07/17 00:55 11/07/17 00:56 DC 11/07/17 01:11 1,000 MG ED Course Prior records/ancillary studies reviewed. Triage Nursing notes reviewed. Additional history obtained from family. The patient's history was concerning for fever. Differential diagnosis: Etiologies such as viral syndrome, otitis, pharyngitis, pneumonia, influenza, meningitis, urinary tract infection, sepsis, bacteremia, as well as others were entertained. Physical examination: Patient is alert mildly ill-appearing and wheezing ER treatment provided: Nebulizer, steroids, Symbicort, Rocephin, Tylenol, Motrin On reassessment the patient felt better. Diagnostics interpreted by me: The labs revealed no worrisome leukocytosis. Negative influenza Imaging studies: Chest x-ray concerning for developing right lower lobe pneumonia per my interpretation. No free air or pneumothorax. CURB Score: Confusion: 0 Urea (BUN > 19): 0 Respiratory Rate (>30/min): 0 Blood Pressure: Diastolic <60 or Systolic <90 0 Age (>= 65) 0 Total (0-1 low risk, 2-5 high risk): 0 This appears to be consistent with pneumonia with wheezing. CURB score=0. Patient's O2 sats were 90-95%. Patient felt comfortable walking around the ER. Patient felt much better to be medicated as above. He is a pulse ox at home. He was advised to monitor his O2 saturations. Patient was started on antibiotics and advised to take all medications as directed, rest, stay well- hydrated and follow-up family care in a few days here in the ER sooner for high fevers, lethargy, vomiting, worsening signs or symptoms or as needed.. By the evaluation outlined above emergent etiologies such as otitis, pharyngitis, meningitis, urinary tract infection, sepsis, bacteremia, as well as others were deemed relatively unlikely. The pt informed about the findings as listed above. All questions were answered and pleased with the treatment. Return instructions were outlined and the patient was discharged in stable condition. Outpatient prescription management: Amoxil, Z-rich Referral: The patient was referred back to their primary care physician for follow-up in 2 to 3 days for a recheck of the current condition. Case reviewed with my attending The chart was completed utilizing [employer] Speech voice recognition software. Grammatical errors, random word insertions, pronoun errors, and incomplete sentences are an occassional consequence of this system due to software limitations, ambient noise, and hardware issues. Any formal questions or concerns about the content, text, or information contained within the body of this dictation should be directly addressed to the physician temporary office assistant for clarification. Medical Decision As above Medication Reconcilliation Current Medication List: was personally reviewed by me Blood Pressure Screening Patient's blood pressure: Elevated blood pressure Blood pressure disposition: Elevated BP felt to be situational Impression Primary Impression: Pneumonia Departure Information Dispostion Home / Self-Care Condition GOOD Prescriptions Amoxicillin (AMOXIL) 500 Mg Cap 1000 MG PO BID for 10 Days, #40 CAP Prov: Dotty Ibarra .TOMAS 11/07/17 Azithromycin (Zithromax) 250 Mg Tab 250 MG PO DAILY for 4 Days, #4 TAB Prov: Dotty Ibarra .TOMAS 11/07/17 Forms WORK / SCHOOL INSTRUCTIONS, HOME CARE DOCUMENTATION FORM, Days off work : 3 Work Instructions, IMPORTANT VISIT INFORMATION Patient Instructions Pneumonia, [facility] Additional Instructions DO NOT drive, drink alcohol, operate machinery, or perform dangerous activities today. You were given medications in the ER that can affect your ability to safely function or operate a vehicle. Azithromycin(Zithromax) 250mg: Take one a day for 4 additional days. All antibiotics can cause diarrhea. If this occurs and you feel worse or it does not resolve in 1-2 days follow up with your doctor or return to the Emergency Department as this could be signs of serious underlying problems. Any medication can cause an allergic reaction, stop the pills immediately and return to the ER for rash, hives, breathing difficulties, or swelling. Amoxil 500mg: Take 2 pills twice daily for 10 days for your infection. Take with food, but avoid dairy. All antibiotics can cause diarrhea. If this occurs and you feel worse or it does not resolve in 1-2 days follow up with your doctor or return to the Emergency Department as this could be signs of serious underlying problems. Any medication can cause an allergic reaction, stop the pills immediately and return to the ER for rash, hives, breathing difficulties, or swelling. Albuterol Inhaler: Take 2 puffs four times daily for seven days, then as needed. Acetaminophen(Tylenol) may be used for fever or pain. Use 1000mg every six hours as needed. Avoid using more than 3000mg in a 24 hour period. AND/OR Ibuprofen(Motrin, Advil) may be used for fever or pain. Use 600mg every six hours as needed. Take with food. Avoid using more than 2400mg in a 24 hour period. Do not use 2400mg per day for more than three consecutive days without physician direction. Prolonged inappropriate use can lead to stomach upset or ulcers. Controlling your fever with Tylenol and Ibuprofen as above will make you feel better. Rest and drink plenty of fluids. Avoid strenuous activity until your symptoms resolve and your breathing returns to normal. Continue current medications. Return to the ER for chest pain, difficulty breathing, persistent fevers, vomiting, worsening of your condition, or as needed. Follow-up with family care in 2-3 days. Problem Qualifiers Primary Impression: Pneumonia Pneumonia type: due to unspecified organism Laterality: right Lung location : lower lobe of lung Qualified Codes: J18.1 - Lobar pneumonia, unspecified organism
--- NOTE | 2017-11-07 06:26 | DIAGNOSTIC IMAGING REPORT ---
CHEST 2 VIEWS ROUTINE CLINICAL HISTORY: cough/fever dyspnea COMPARISON STUDY: 04/25/2017 FINDINGS: The bones soft tissues and hemidiaphragms are normal. The cardiomediastinal silhouette is normal. The lungs are clear. The pulmonary vasculature is normal. IMPRESSION: Negative chest. The above report was generated using voice recognition software. It may contain grammatical, syntax or spelling errors. Electronically signed by: Ronal Leon M.D. 11/07/2017 6:25 AM Dictated Date/Time: 11/07/2017 6:24 AM
== END 2017-11-07 01:30 | disposition home or self-care (01) ==
LOC: C.EDB 22:07 → C.EDA 11-07 01:30
DX: J18.9 Pneumonia, unspecified organism (principal); J45.909 Unspecified asthma, uncomplicated; K21.9 Gastro-esophageal reflux disease without esophagitis; F17.200 Nicotine dependence, unspecified, uncomplicated; Z82.49 Family history of ischemic heart disease and other diseases of the circulatory system; Z83.6 Family history of other diseases of the respiratory system

== ENCOUNTER → 2018-03-18 | Outpatient (CLI) | payer OTHER ==
[~2018-03-18] MED LIST changes: +ALBINS/ INH; +AZIT250T PO; -HYDR-5688 PO; +PRED20TA PO; +TIOT1SPR INH
--- NOTE | 2018-03-19 05:45 | PAP/PSG TECHNICIAN REPORT ---
[facility] Biological Technical Officer Polysomnogram Report Study name: None Report date: 03/19/2018 Study date: 03/18/2018 Referring Physician: Dr. Toni Curtis DO Name: CELSO ANDERSON Interpreting Physician: Toni Curtis D.O. Date of : 1990 Biological Technical Officer: ANTHONY Wall. Sex: Male Age: 27 StudyType: PSG Weight: 228 lbs Height: 27 years, Height 6' 0" BMI: 30.92 Medications: SYMBICORT 160-4.5 MCG, ALBUTEROL SULFATE HFA 108 MCG, MELINA 180 MG, NEXIUM 20 MG, RANITIDINE HCL 300 MG, Patient History PATIENT HAD A HOME SLEEP STUDY AND HAD AN AHI OF 5. HE WAS GIVE AN CPAP BUT WAS NOT ABLE TO TOLERATE THE MASK BECAUSE IT WOULD ALWAYS LEAK. HE IS HERE TODAY FOR A PSG. ESS = 16 RM 4 Parameters Monitored NPSG: E1-M2, E2-M1, Fp1-M2, Fp2-M1, F3-M2, F4-M2, F4-M1, C3-M2, C4-M2, C4-M1, O1-M2, O2-M2, O2-M1, T3-M2, T4-M1, P3-M2, P4-M1, CHIN1, CHIN2, HR, EKG, Legs, PFLOW, SNOR, FLOW, CFLOW, Tidal Volume, THOR, ABDO, SpO2, PLTH, CPRESS, ETCO2 Wave, ETCO2, pH Sleep Architecture Sleep Stages Time at Lights Off 9:03:12 PM STAGES Time (min.) TST (%) Time at Lights On 5:23:12 AM Wake 19.0 -- Total Recording Time (TRT) 500.50 min. N1 6.0 1 Total Sleep Period (TSP) 497.0 min. N2 273.0 57 Total Sleep Time (TST) 481.0min. N3 91.5 19 Awake Time 19.5 min. REM 110.5 23 Wake after Sleep Onset 17.5 min. Sleep Efficiency (SE) 96 % Sleep Onset Latency (DREW) 1.5 min. Number of Stage 1 Shifts None Awakenings 5 Stage Changes 32 Number of REM periods 4 REM 110.5 23 REM Latency 97.5 min. NREM 370.5 77 Body Position Analysis Supine Right Left Side Prone Vertical Total Sleep Time (min.) 500.0 0.0 0.0 0.00 0.0 0.0 Total Sleep Time (%) 100% 0% 0% 0 0% N/A% Total Sleep Time REM (min.) 110.5 0.0 0.0 None 0.0 0.0 Total Sleep Time NREM (min.) 370.5 0.0 0.0 None 0.0 0.0 Intermittent Wake (min.) 19.0 0.0 0.0 None 0.0 0.0 Total Sleep Period (%) 100% None None None None None Arousals Myoclonus (PLM) * Events Count Index Events Count Index Spontaneous 46 6 Events Awake (PLMW) 25 78.9 Respiratory 17 2.1 Events Asleep w/ Arousal (PLMA) 5 0.6 PLM 5 1 Events Asleep w/o Arousal (PLMS) 63 7.9 Snoring 0 0 Total Asleep 68 8.5 Total 68 8 Total 93 11 Respiratory Analysis * CA OA MA CH H RERA Total Count 0 0 0 0 47 11 47 Index 0.0 0.0 0.0 0 5.9 1 7.2 Mean Duration 0.0 0.0 0.0 0.00 23.7 15.4 22.1 Longest Duration 0.0 0.0 0.0 0.00 0.0 18.9 58.3 Respiratory Event Summary Total Supine ~Supine Right Left Prone REM NREM Apneas Count 0 0 N/A N/A N/A N/A 0 0 Index 0.0 0 N/A N/A N/A N/A 0 0 Hypopneas (4% Desat) Count 47 47 N/A N/A N/A N/A 30 17 Index 5.9 5.9 N/A N/A N/A N/A 16.3 2.8 Apneas & All Hypopneas Count 47 47 N/A N/A N/A N/A 30 17 Index 5.9 6 N/A N/A N/A N/A 16.3 2.8 Respiratory Events (Wastewater Operator+All Hyp+RERA) Count 47 58 N/A N/A N/A N/A 30 17 Index 7.2 7 N/A N/A N/A N/A 16.3 4.5 Respiratory Related Arousal Count 17 58 N/A N/A N/A N/A 0 17 Index 2.1 2 N/A N/A N/A N/A 0 3 Snoring Analysis Supine Right Left Prone REM NREM Total Snore duration 0.4 min Snores count 13 N/A N/A N/A 2 11 13 Snore mean duration 1.7 Sec Snores index 2 N/A N/A N/A 1.1 1.8 1.6 TST with snoring (%) 0.1% Desaturation Event Summary: Minimum %SpO2 Event Count Mean/Min/Max Duration(sec.) Desaturation Index % Time In Bed > 90 36 35.7 / 12.3 / 60.7 27.6 15.8 86 - 90 29 29.1 / 4.0 / 56.3 4.6 77.0 81 - 85 0 N/A 0.0 7.2 76 - 80 0 N/A 0.0 0.0 71 - 75 0 N/A 0.0 0.0 66 - 70 0 N/A 0.0 0.0 61 - 65 0 N/A 0.0 0.0 56 - 60 0 N/A 0.0 0.0 51 - 55 0 N/A 0.0 0.0 < 50 0 N/A 0.0 0.0 Total REM NREM Awake <50% 0.0 min. 0.0 min. 0.0 min. 0.0 min. 51 - 60% 0.0 min. 0.0 min. 0.0 min. 0.0 min. 61 - 70% 0.0 min. 0.0 min. 0.0 min. 0.0 min. 71 - 80% 0.0 min. 0.0 min. 0.0 min. 0.0 min. 81 - 90% 416.3 min. 66.9 min. 345.2 min. 4.1 min. 91 - 100% 78.4 min. 43.6 min. 25.3 min. 9.5 min. Average 89 90 89 91 Minimum SpO2 81 81 83 85 Desaturation Event Index 5.9 17.4 2.4 6.3 # Desat. Events below 89% 40 24 15 1 Time(%) with Saturation below 89% 25.0 3.8 20.9 0.2 Time(min.) with Saturation below 89% 123.6 18.9 103.5 1.2 Time (mins) REM (mins) NREM (mins) % of TST SpO2 Below 90% 46 31 N15 56.4 SpO2 Below 88% 22 0 0 17 Heart Rate Analysis Min (bpm) Max (bpm) Average (bpm) Awake 50 127 63 NREM 45 87 58 REM 47 85 58 Overall 45 87 58 Supplemental O2 Values Minimum O2 level: None Value Start Time End Time Biological Technical Officer Comments Mr. Anderson slept in the supine position. No cardiac arrhythmia noted. Leg movements noted. Bruxism noted. Snoring was noted and scored as a 1 on a scale of 1 through 5. (0=no snoring, 5=snoring loud enough to be heard through a closed door or down the becerra way) Mr. Anderson awoke to use the restroom 1 time during the night. Mr. Anderson stated I slept as well as I do when I am in my own bed. The final report will be interpreted and signed by a sleep physician. The completed physician report will then be placed in the patient medical record. Therapy (cm H2O) 0 TIB (min.) 500.0 TST (min.) 481.0 Sleep Onset (min.) 1.5 REM Onset From Sleep (min.) 97.5 Sleep Efficiency % 96 Wakefulness (%) 4 Wakefulness (min.) 19.5 NREM 1 (%) 1 NREM 1 (min.) 6.0 NREM 2 (%) 57 NREM 2 (min.) 273.0 NREM 3 (%) 19 NREM 3 (min.) 91.5 REM (%) 23 REM (min.) 110.5 # Arousals 68 Arousal Index 8 # Snore 13 Snore Index 1.6 AHI 5.9 AHI Supine 6 AHI Non-Supine N/A NREM AHI 2.8 REM AHI 16.3 RDI 7.2 # Obstructive Apnea 0 # Central Apnea 0 # Mixed Apnea 0 # Hypopneas 47 RERAs 11 Total Respiratory Events 59 Time Below SpO2 89% (min.) 122.4 Mean NREM SpO2 (%) 89 Mean REM SpO2 (%) 90 Mean Sleep SpO2 (%) 89 Min NREM SpO2 (%) 83 Min REM SpO2 (%) 81 Position Supine (min.) 500.0 Position Non-supine (min.) 0.0 LM Index Sleep 8.5 LM Index NREM 8.9 LM Index REM 7.1 Mean Heart Rate (bpm) 58 Min Heart Rate (bpm) 45
--- NOTE | 2018-03-23 18:03 | POLYSOMNOGRAPH REPORT ---
CLINICAL DATA: The patient is a 27-year-old male with a history of asthma. He has symptoms of excessive daytime somnolence. His [place] sleepiness scale score is 16. A home sleep study was done in 2014, which showed an apnea hypopnea index of 5. He was treated with nasal CPAP at 7 cm from a study done 09/13/2015. He did not tolerate CPAP. The patient is referred to the sleep disorder center for a repeat diagnostic sleep study. SLEEP ARCHITECTURE: The total sleep period was 497 minutes. The total sleep time was 481 minutes. The sleep efficiency was normal at 96%. Sleep latency was short at 1.5 minutes. Wake after sleep onset was 17.5 minutes. The REM latency was 97.5 minutes which is normal. There were 4 REM periods during the night. Sleep consisted of stage N1 1%, stage N2 57%, stage N3 19%, stage REM 23%. AROUSAL DATA: The patient had 68 arousals including 46 spontaneous, 17 respiratory, and 5 PLM arousals. The arousal index was 8. PLM DATA: The patient had 68 periodic limb movements of sleep for a PLM index of 8.5. There were 5 arousals, associated with limb movements for a PLM arousal index of only 0.6. EKG DATA: The cardiac rates ranged from 45-87 beats per minute. The average heart rate was 58 beats per minute. RESPIRATORY DATA: The patient had a total of 47 respiratory events, all hypopneas. Hypopneas were scored according to the 4% desaturation rule. The mean duration of the hypopneas was 23.7. He had 11 RERAs. The respiratory disturbance index was 7.2. These results are compatible with mild obstructive sleep apnea. OXIMETRY DATA: The average saturation for the night was 89%. The minimum saturation was 81%. There was a total of 123.6 minutes with saturations less than 89%. ASSAYER HELPER COMMENTS: Mr. Dang slept in the supine position. No cardiac arrhythmia noted. Leg movements noted. Bruxism noted. Snoring was noted and scored as a 1 on a scale of 1 through 5. Mr. Dang awoke to use the restroom one time during the night. He stated that he slept as well as he does in his own bed. IMPRESSION: Mild obstructive sleep apnea. COMMENTS: Patient has mild sleep apnea, but significant symptoms of daytime somnolence. He has a history of asthma. He has nocturnal hypoxia. In light of these factors, strong consideration would be given to treatment of the underlying sleep apnea if the patient would be agreeable. RECOMMENDATIONS: 1. Consideration is given to treatment with nasal CPAP or BiPAP. 2. If the patient would refuse nasal CPAP or BiPAP, consideration could be given to treatment with an oral appliance. 3. Patient has an elevated BMI of 30.92. Weight loss is advised. 4. This study was done with the patient supine. It would be advised that he avoid sleeping in the supine position as there are typically less respiratory events in other positions. 5. The patient should be advised of the appropriate principles of sleep hygiene, which would include allowing 7.5-8 hours of sleep per night as well as having a regular sleep-wake schedule.
== END | disposition home or self-care (01) ==
LOC: C.NEUR 20:00
PROVIDERS: ATTEND Internal Medicine Pulmonary Disease
DX: G47.33 Obstructive sleep apnea (adult) (pediatric) (principal)

== ENCOUNTER 2019-11-07 21:23 | Inpatient (IN) ==
[2019-11-07] MEDS ORDERED: SODIUM CHLORIDE 0.9% 1000ML 1,000 ML IV ONE (21:53)
[2019-11-07] MEDS ORDERED: MoRPHine SULFATE 4 MG/ML 1 ML CARP\\VIAL IV STA (21:53)
[2019-11-07] MEDS ORDERED: ONDANSETRON INJ 2 MG/ML 2 ML VIAL IV STA (22:06)
[2019-11-07] MEDS ORDERED: OPTIRAY 320 125ml IV PRN (22:10)
[2019-11-07 22:14] LABS: Basophils # (auto) 0.01 K/uL (0-0.2); Basophils % (auto) 0.1 %; Eosinophils # (auto) 0.12 K/uL (0-0.5); Eosinophils % (auto) 1.4 %; Hematocrit (blood only) 44.6 % (42-52); Hemoglobin 15.3 g/dL (14.0-18.0); Immature Granulocytes # (auto) 0.02 K/uL (0.00-0.02); Immature Granulocytes % (auto) 0.2 %; Lymphocytes # (auto) 2.23 K/uL (1.2-3.4); Lymphocytes % (auto) 25.4 %; Mean Corpuscular Hemoglobin 30.9 pg (25-34); Mean Corpuscular Hgb Conc 34.3 g/dL (32-36); Mean Corpuscular Volume 90.1 fL (80-100); Monocytes # (auto) 0.72 K/uL (0.11-0.59); Monocytes % (auto) 8.2 %; Neutrophils # (auto) 5.67 K/uL (1.4-6.5); Neutrophils % (auto) 64.7 %; Platelet Count 282 K/uL (130-400); RDW Coefficient of Variation 13.1 % (11.5-14.5); RDW Standard Deviation 42.8 fL (36.4-46.3); Red Blood Count 4.95 M/uL (4.7-6.1); White Blood Count 8.77 K/uL (4.8-10.8)
[2019-11-07] MEDS ORDERED: ALBUT/IPRATROP 3MG/0.5MG NEB 3 ML VIAL NEB STA (22:27)
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
[2019-11-07 22:32] LABS: Partial Thromboplastin Time 26.9 Seconds (21.0-31.0); Prothrombin Time 10.4 Seconds (9.0-12.0)
[2019-11-07 22:33] LABS: Alanine Aminotransferase 139 U/L (12-78); Albumin Level 4.2 gm/dl (3.4-5.0); Aspartate Aminotransferase 40 U/L (15-37); BUN Creatinine Ratio 12.5 (10-20); Blood Urea Nitrogen 13 mg/dl (7-18); Carbon Dioxide 30 mmol/L (21-32); Chloride 103 mmol/L (98-107); Creatinine Clr Calc Pharmacy 136.6 ml/min; Est GFR (African American) 108.6; Est GFR (Non-African American) 93.7; Glucose 109 mg/dl (70-99); Potassium 3.6 mmol/L (3.5-5.1); Sodium 138 mmol/L (136-145)
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
[2019-11-07 22:36] LABS: Albumin Globulin Ratio 1.2 (0.9-2); Alkaline Phosphatase 81 U/L (45-117); Bilirubin,Total 0.4 mg/dl (0.2-1); Globulin 3.6 gm/dl (2.5-4.0); Total Protein 7.8 gm/dl (6.4-8.2)
[2019-11-07 22:50] LABS: Troponin I < 0.015 ng/ml (0-0.045)
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
[2019-11-08] MEDS ORDERED: MoRPHine SULFATE 4 MG/ML 1 ML CARP\\VIAL IV STA (00:30)
[2019-11-08] MEDS ORDERED: MoRPHine SULFATE 4 MG/ML 1 ML CARP\\VIAL ONE (00:49)
[2019-11-08 01:39] LABS: Appearance Urine Clear (Clear); Bilirubin Urine Negative (Negative); Blood Urine Negative (Negative); Color Urine Yellow; Glucose Urine UA Negative (Negative); Ketones Urine Negative (Negative); Leukocyte Esterase Urine Negative (Negative); Nitrite Urine Negative (Negative); Protein Urine Negative (Negative); Specific Gravity Urine 1.037 (1.000-1.030); Urobilinogen Urine Negative (Negative); pH Urine 6.5 (4.5-7.5)
[2019-11-08 01:47] LABS: Influenza A virus by PCR Neg for Influ A (Neg); Influenza B virus by PCR Neg for Influ B (Neg)
[2019-11-08] MEDS ORDERED: ALBUTEROL 0.083% NEBU SOLN 3 ML VIAL INH PRN (02:07)
[2019-11-08] MEDS ORDERED: ALUMINUM/MAGNESIUM SUSP 30 ML UDC PO PRN (02:07)
[2019-11-08] MEDS ORDERED: BENZONATATE 100 MG CAPSULE PO PRN (02:07)
[2019-11-08] MEDS ORDERED: ONDANSETRON INJ 2 MG/ML 2 ML VIAL IV PRN (02:07)
[2019-11-08] MEDS ORDERED: ACETAMINOPHEN 325 MG TAB PO PRN (02:07)
[2019-11-08] MEDS ORDERED: GUAIFENESIN/DEXTROM SYRUP 200MG/20MG 10ML UDC PO PRN (02:07)
[2019-11-08 02:50] LABS: HCO3 ABG 26 mmol/L (19-24); Oxygen Saturation ABG 95.5 % (90-95); PCO2 ABG 46 mmHg (35-46); PO2 ABG 78 mmHg (80-95); pH ABG 7.37 (7.35-7.45)
[2019-11-08 02:51] LABS: Allen Test Pos (Pos)
[2019-11-08 06:09] LABS: Basophils # (auto) 0.01 K/uL (0-0.2); Basophils % (auto) 0.1 %; Eosinophils # (auto) 0.11 K/uL (0-0.5); Eosinophils % (auto) 1.6 %; Hematocrit (blood only) 40.3 % (42-52); Hemoglobin 13.2 g/dL (14.0-18.0); Immature Granulocytes # (auto) 0.01 K/uL (0.00-0.02); Immature Granulocytes % (auto) 0.1 %; Lymphocytes # (auto) 1.96 K/uL (1.2-3.4); Lymphocytes % (auto) 28.9 %; Mean Corpuscular Hemoglobin 29.9 pg (25-34); Mean Corpuscular Hgb Conc 32.8 g/dL (32-36); Mean Corpuscular Volume 91.2 fL (80-100); Monocytes # (auto) 0.59 K/uL (0.11-0.59); Monocytes % (auto) 8.7 %; Neutrophils % (auto) 60.6 %; Platelet Count 254 K/uL (130-400); RDW Coefficient of Variation 13.1 % (11.5-14.5); RDW Standard Deviation 43.6 fL (36.4-46.3); Red Blood Count 4.42 M/uL (4.7-6.1); White Blood Count 6.78 K/uL (4.8-10.8)
[2019-11-08 06:43] LABS: Albumin Level 3.4 gm/dl (3.4-5.0); BUN Creatinine Ratio 14.4 (10-20); Calcium 8.5 mg/dl (8.5-10.1); Creatinine Clr Calc Pharmacy 169.7 ml/min; Est GFR (African American) 134.2; Est GFR (Non-African American) 115.8; Potassium 3.7 mmol/L (3.5-5.1)
[2019-11-08 06:46] LABS: Bilirubin,Total 0.3 mg/dl (0.2-1); Globulin 3.4 gm/dl (2.5-4.0); Total Protein 6.8 gm/dl (6.4-8.2)
[2019-11-08] MEDS: MoRPHine SULFATE 2 MG/ML CARP IV PRN ×4 (08:01→22:33)
[2019-11-08] MEDS: NICOTINE 21 MG/24 HR TDSY TD SCH (08:05)
[2019-11-08] MEDS: FLUTICASONE/VILANTEROL 200/25MCG 14 PUFFS/INHALER INH SCH (08:05)
[2019-11-08] MEDS: UMECLIDINIUM BROMIDE 62.5MCG/BLISTER 7 PUFFS/INHALER INH SCH (08:05)
[2019-11-08] MEDS: MULTIVITAMIN TAB PO SCH (08:06)
[2019-11-08] MEDS: PANTOprazole 40 MG TAB PO SCH (08:06)
[2019-11-08] MEDS: FEXOFENADINE HCL 180 MG TAB PO SCH (08:07)
[2019-11-08] MEDS ORDERED: INDAPAMIDE 1.25 MG TAB PO SCH (09:00)
[2019-11-08] MEDS: LIDOCAINE 5% 1 PATCH TD SCH (09:11)
[2019-11-08] MEDS ORDERED: IBUPROFEN 600 MG TAB PO PRN (10:54)
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
[2019-11-08] MEDS: ACETAMINOPHEN 325 MG TAB PO SCH ×2 (14:04→20:35)
[2019-11-08] MEDS: OXYCODONE HCL IR 5 MG TAB (IMMEDIATE RELEASE) PO PRN ×2 (15:36→20:35)
[2019-11-08] MEDS: MONTELUKAST SODIUM 10 MG TABLET PO SCH (20:35)
--- NOTE | 2019-11-08 22:13 | Billing Data ---
Date of Service November 08, 2019 Coding Level of Care Code 87559 Initial Inpt Care Lvl 3
[2019-11-09] MEDS: OXYCODONE HCL IR 5 MG TAB (IMMEDIATE RELEASE) PO PRN (00:51)
[2019-11-09] MEDS: MoRPHine SULFATE 2 MG/ML CARP IV PRN (03:31)
[2019-11-09] MEDS: DOCUSATE SODIUM 100 MG CAP PO PRN (05:17)
[2019-11-09] MEDS: MULTIVITAMIN TAB PO SCH (07:46)
[2019-11-09] MEDS: PANTOprazole 40 MG TAB PO SCH (07:46)
[2019-11-09] MEDS: FEXOFENADINE HCL 180 MG TAB PO SCH (07:46)
[2019-11-09] MEDS: NICOTINE 21 MG/24 HR TDSY TD SCH ×2 (07:46→07:50)
[2019-11-09] MEDS: ACETAMINOPHEN 325 MG TAB PO SCH ×3 (07:46→22:19)
[2019-11-09] MEDS: LIDOCAINE 5% 1 PATCH TD SCH (07:47)
[2019-11-09] MEDS: UMECLIDINIUM BROMIDE 62.5MCG/BLISTER 7 PUFFS/INHALER INH SCH (07:48)
[2019-11-09] MEDS: FLUTICASONE/VILANTEROL 200/25MCG 14 PUFFS/INHALER INH SCH (07:48)
[2019-11-09 08:30] LABS: Basophils # (auto) 0.01 K/uL (0-0.2); Basophils % (auto) 0.1 %; Eosinophils # (auto) 0.05 K/uL (0-0.5); Eosinophils % (auto) 0.4 %; Hematocrit (blood only) 42.2 % (42-52); Hemoglobin 14.2 g/dL (14.0-18.0); Immature Granulocytes # (auto) 0.03 K/uL (0.00-0.02); Immature Granulocytes % (auto) 0.2 %; Lymphocytes # (auto) 1.03 K/uL (1.2-3.4); Lymphocytes % (auto) 8.1 %; Mean Corpuscular Hemoglobin 30.4 pg (25-34); Mean Corpuscular Volume 90.4 fL (80-100); Mean Platelet Volume 8.9 fL (7.4-10.4); Monocytes # (auto) 0.97 K/uL (0.11-0.59); Monocytes % (auto) 7.7 %; Neutrophils # (auto) 10.58 K/uL (1.4-6.5); Neutrophils % (auto) 83.5 %; Platelet Count 237 K/uL (130-400); RDW Standard Deviation 42.5 fL (36.4-46.3); Red Blood Count 4.67 M/uL (4.7-6.1); White Blood Count 12.67 K/uL (4.8-10.8)
[2019-11-09 08:31] LABS: Base Excess ABG 2.7 mEq/L (-9-1.8); HCO3 ABG 27 mmol/L (19-24); Oxygen Saturation ABG 85.9 % (90-95); PCO2 ABG 38 mmHg (35-46); PO2 ABG 51 mmHg (80-95); pH ABG 7.46 (7.35-7.45)
[2019-11-09 08:32] LABS: Allen Test Pos (Pos)
[2019-11-09 08:36] LABS: Mean Corpuscular Hgb Conc 33.6 g/dL (32-36)
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
[2019-11-09 08:51] LABS: Albumin Level 3.8 gm/dl (3.4-5.0); BUN Creatinine Ratio 11.6 (10-20); Calcium 9.3 mg/dl (8.5-10.1); Est GFR (African American) 132.4; Est GFR (Non-African American) 114.2; Potassium 3.8 mmol/L (3.5-5.1)
[2019-11-09 08:54] LABS: Bilirubin,Total 0.8 mg/dl (0.2-1); Globulin 3.9 gm/dl (2.5-4.0); Total Protein 7.7 gm/dl (6.4-8.2)
[2019-11-09] MEDS ORDERED: OPTIRAY 320 125ml IV PRN (09:11)
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
--- NOTE | 2019-11-09 09:40 | CT Scan Report ---
CT OF THE ABDOMEN AND PELVIS WITH CONTRAST CLINICAL HISTORY: trauma, lower rib fractures COMPARISON STUDY: CT of the abdomen and pelvis November 07, 2019. TECHNIQUE: Following IV administration of 120 mL of Optiray-320, axial images of the abdomen and pelv is were obtained from the lung bases to the proximal femurs. Images were reviewed in the axial, sagit luisito, and coronal planes. IV contrast was administered without complication. Automated exposure contr ol was utilized for the study. A dose lowering technique was utilized adhering to the principles of ALARA. FINDINGS: Please note that the chest CT will be reported separately. Extensive secretions are noted w ithin visualized portions of the airways. Extensive bilateral lower lobe atelectasis, greater on the right, has increased since exam of November 07, 2019. Nodular airspace opacities within the lower lungs measure up to 1.9 cm. Note is again made of fractures of the right ninth through 12th ribs. There is no evidence for traumatic injury to the liver, spleen, adrenal glands, kidneys or pancreas. There is pancreatic glandular atrophy. The appendix is normal. The caliber and wall thickness of small and lar ge bowel are normal. There is no hemoperitoneum or pneumoperitoneum. There is no free fluid. Marked f atty infiltration of the liver is noted. A few subcentimeter bilateral renal lesions are too small to characterize. No acute pelvic or lumbar spine fracture is noted. IMPRESSION: 1. No acute traumatic findings within the abdomen or pelvis. 2. Extensive bilateral lower lobe atelectasis, greater on the right which has increased since exam of November 07, 2019. Additional nodular airspace opacities within the lower lungs could reflect an infect ious process. 3. Fatty infiltration of the liver. 4. Redemonstration of right ninth through 12th rib fractures. ACT 112: Negative or not required by law. Electronically signed by: Jez Carpio M.D. 11/09/2019 9:39 AM
[2019-11-09] MEDS ORDERED: DexMEDEtomidine BOLUS FROM BAG IV ONE (09:41)
[2019-11-09] MEDS ORDERED: STAT IV Infusion **Titration per Protocol STA (09:41)
[2019-11-09] MEDS ORDERED: GABAPENTIN 1200MG ALCOHOL WITHDRAWAL LOAD PO STA (09:41)
[2019-11-09] MEDS ORDERED: SODIUM CHLORIDE 0.9% INJ 10 ML VIAL ONE (09:45)
[2019-11-09] MEDS ORDERED: fentaNYL citrate 100 MCG/2 ML VIAL ONE (09:45)
[2019-11-09] MEDS ORDERED: DEXMEDETOMIDINE HCL 200 MCG in SODIUM CHLORIDE 0.9% 48 ML IV SCH (09:45)
[2019-11-09] MEDS ORDERED: BUPIVACAINE 0.5 % 5 MG/1 ML PF 10ML VIAL ONE (09:45)
[2019-11-09] MEDS ORDERED: fentaNYL citrate 100 MCG/2 ML VIAL IV STA (09:46)
[2019-11-09] MEDS ORDERED: KETAMINE HCL INJ 50 MG/ML 10 ML VIAL IV STA (09:46)
[2019-11-09 09:52] LABS: Partial Thromboplastin Ratio 1.1; Partial Thromboplastin Time 29.4 Seconds (21.0-31.0); Prothrombin Time 10.9 Seconds (9.0-12.0)
[2019-11-09] MEDS ORDERED: ICU ELECTROLYTE REPLACEMENT PROTOCOL PRN (09:54)
[2019-11-09] MEDS ORDERED: GABAPENTIN 600 MG TAB PO SCH ×2 (10:00→16:00)
[2019-11-09] MEDS ORDERED: TUBERCULIN SKIN TEST 5 TU in SYRINGE 0 ML ID ONE (10:00)
[2019-11-09] MEDS ORDERED: LACTATED RINGER'S 1,000 ML IV PRN (10:24)
[2019-11-09] MEDS ORDERED: ONDANSETRON INJ 2 MG/ML 2 ML VIAL IV PRN (10:24)
[2019-11-09] MEDS ORDERED: NALOXONE HCL 0.4 MG/1 ML VIAL/CARP IV PRN (10:24)
[2019-11-09] MEDS ORDERED: NALBUPHINE HCL INJ 10 MG/ML AMP IV PRN (10:24)
[2019-11-09] MEDS ORDERED: MoRPHine SULFATE 2 MG/ML CARP IV PRN (10:24)
[2019-11-09] MEDS ORDERED: NALOXONE HCL 1 MG in SODIUM CHLORIDE 0.9% 1000ML 1,000 ML IV PRN (10:24)
[2019-11-09] MEDS ORDERED: DiphenhydrAMINE HCL 50 MG/ML VIAL IV PRN (10:24)
[2019-11-09] MEDS ORDERED: ePHEDrine sulfate 50 MG/ML AMP IV PRN (10:24)
[2019-11-09] MEDS ORDERED: NO NARCOTICS OR SEDATIVES SCH (10:30)
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
--- NOTE | 2019-11-09 10:42 | Pre Anesthesia Assessment ---
Date of Service November 09, 2019 Pre Sedation Assessment Vital Signs Temp Pulse Pulse Pulse Pulse Pulse Pulse 11/09/19 09:30 87 11/09/19 08:50 11/09/19 07:25 39.1 C H 11/09/19 07:23 11/09/19 07:00 39.1 C H 11/09/19 05:21 38 C H 11/09/19 04:35 11/09/19 00:56 11/08/19 23:07 37.4 C 11/08/19 15:54 37.2 C 11/08/19 11:37 81 85 95 H 86 83 Pulse Pulse Pulse Resp Resp Resp Resp 11/09/19 09:30 24 11/09/19 08:50 105 H 32 H 11/09/19 07:25 11/09/19 07:23 104 H 24 11/09/19 07:00 95 H 22 11/09/19 05:21 11/09/19 04:35 72 22 11/09/19 00:56 76 20 11/08/19 23:07 80 18 11/08/19 15:54 84 22 11/08/19 11:37 97 H 81 18 19 20 Resp Resp Resp Resp BP BP Pulse Ox 11/09/19 09:30 93 11/09/19 08:50 85 L 11/09/19 07:25 11/09/19 07:23 87 L 11/09/19 07:00 143/63 H 90 11/09/19 05:21 11/09/19 04:35 90 11/09/19 00:56 88 L 11/08/19 23:07 138/70 90 11/08/19 15:54 113/68 91 11/08/19 11:37 21 19 21 18 Pulse Ox Pulse Ox Pulse Ox Pulse Ox Pulse Ox Pulse Ox Pulse Ox 11/09/19 09:30 11/09/19 08:50 11/09/19 07:25 11/09/19 07:23 11/09/19 07:00 11/09/19 05:21 11/09/19 04:35 11/09/19 00:56 11/08/19 23:07 11/08/19 15:54 11/08/19 11:37 88 L 86 L 86 L 88 L 86 L 89 L 86 L Cardiovascular RRR, no murmur, no edema Respiratory + respiratory effort normal, + able to speak in complete sentences and + prolonged expiratory phase + rhonchi Pre-Sedation Airway Assessment Smoking Status: Current every day smoker Hx Sleep Apnea: Yes (untreated) Hx Difficult Intubation: No Short, Thick Neck: No Thyromental Distance: > or= 3.5 Finger Breadths Oral Cavity: + WNL Mallampati Class: III asa class 2 NPO Status Date of Last Intake of Fluids: 11/08/19 Date of Last Intake of Solid Food: 11/08/19 Procedure Planning Contraindications for Sedation: none Current Medications Reviewed: Yes Notes The planned sedation has been discussed with the patient. Informed Consent was obtained. I have identified the patient, determined the appropriateness of sedation and have assessed the patient immediately prior to the procedure. All medicine(s) and interventions are by my order. Starting precedex infusion with fentanyl and ketamine with adjuncts. Procedure bronchoscopy with CPAP therapy through mask.
--- NOTE | 2019-11-09 10:44 | Post Anesthesia Assessment ---
Date of Service November 09, 2019 Post Sedation Assessment Vital Signs Temp Pulse Pulse Pulse Pulse Pulse Pulse 11/09/19 09:30 87 11/09/19 08:50 11/09/19 07:25 39.1 C H 11/09/19 07:23 11/09/19 07:00 39.1 C H 11/09/19 05:21 38 C H 11/09/19 04:35 11/09/19 00:56 11/08/19 23:07 37.4 C 11/08/19 15:54 37.2 C 11/08/19 11:37 81 85 95 H 86 83 Pulse Pulse Pulse Resp Resp Resp Resp 11/09/19 09:30 24 11/09/19 08:50 105 H 32 H 11/09/19 07:25 11/09/19 07:23 104 H 24 11/09/19 07:00 95 H 22 11/09/19 05:21 11/09/19 04:35 72 22 11/09/19 00:56 76 20 11/08/19 23:07 80 18 11/08/19 15:54 84 22 11/08/19 11:37 97 H 81 18 19 20 Resp Resp Resp Resp BP BP Pulse Ox 11/09/19 09:30 93 11/09/19 08:50 85 L 11/09/19 07:25 11/09/19 07:23 87 L 11/09/19 07:00 143/63 H 90 11/09/19 05:21 11/09/19 04:35 90 11/09/19 00:56 88 L 11/08/19 23:07 138/70 90 11/08/19 15:54 113/68 91 11/08/19 11:37 21 19 21 18 Pulse Ox Pulse Ox Pulse Ox Pulse Ox Pulse Ox Pulse Ox Pulse Ox 11/09/19 09:30 11/09/19 08:50 11/09/19 07:25 11/09/19 07:23 11/09/19 07:00 11/09/19 05:21 11/09/19 04:35 11/09/19 00:56 11/08/19 23:07 11/08/19 15:54 11/08/19 11:37 88 L 86 L 86 L 88 L 86 L 89 L 86 L Discharge Sedation Level of Care: Higher Level of Care (Patient previously admitted to ICU level of care to remain at ICU level care) Post Sedation Plan On clinical assessment, the patient appears to have tolerated the sedation without complications. Patient is recovering as anticipated. Patient will continue to be monitored by nursing and may be discharged when sedation discharge criteria are met per below protocol. Upon Completions of procedure up to 15 minutes continue every 5 minute vital signs and the P.A.R. score; then discharge to a Phase I or Fast Track to Phase II per the following guidelines: * Discharge Patient to appropriate Phase II area if PAR is 8 or greater or return to pre- procedure baseline. The post - procedure orders will be as directed. * If PAR score is less than 8 or not return to pre-procedure baseline then patient will follow Phase I monitoring till PAR is reached for Phase II. The Phase I may be done in procedure room or may call to secure a Phase I area. * If naloxone or flumazenil are used for reversal, hold in Phase I for continued monitoring from when last reversal dose was given for a minimum of 60 minutes or longer pending the nurse and/or physician discretion of patient condition before discharge to Phase II. Please call the Sedation Physician to re-evaluate and complete post-note for discharge to Phase II area. Patient was able to follow voice commands through the entire procedure Patient to remain in ICU level care. Medications given: Precedex: 100mcg bolus followed with infusion Fentanyl 50 Mcg x2 boluses Start time 10:45 End time 1125 [facility] Procedure Codes (Charges) Sedation/Anesthesia Procedure 1: Sedation/Anesthesia: 59138 Mod Sedation by the same physician;Init15 Min Child Age 5 & Up Total Sedation Time (minutes): 40
--- NOTE | 2019-11-09 10:46 | Procedure Note ---
Procedure Note: Bronchoscopy Procedure Procedure date: November 09, 2019 Procedure: fiberoptic bronchoscopy Pre-procedure indication: Acute hypoxic respiratory failure, atelectasis right lower lobe, possible pulmonary contusion Post-procedure Diagnosis: same as above Prior to Procedure: Informed Consent: The risks, benefits, indications, potential complications, and alternatives were explained to the patient and informed consent obtained. Attending Staff: Venkat Hong DO Resident/APC: Not applicable Skin Prep: Not applicable Anesthesia: Continuous infusion: See procedural sedation note for details, epidural previously placed by anesthesia The identity of the patient was confirmed and a bedside time out was performed. Description of Procedure: Fiberoptic bronchoscopy was performed via oral approach with a bite block through full CPAP facemask: Settings 17 IPAP 15 EPAP. Bronchioalveolar lavage right lower lobe was performed. Findings included: Excessive dynamic airway collapse of the central, primary and secondary airways: 50% collapse. In attempting to have bronchoscope enter glottic opening the patient had several forceful coughs and expectorated a large amount of yellowish-green thick tenacious sputum. Patient continued with strong forceful coughs after procedure. I believe he dislodged his mucoid impactions with his forceful coughs facilitated with epidural anesthesia Complications: None Specimens: Bronchial washings sent for culture and Gram stain, fungal elements, AFB stain and culture, cell count differential. Estimated blood loss: Zero
[2019-11-09] MEDS: LEVOFLOXACIN/D5W 750 MG/150 ML BAG IV SCH (10:49)
--- NOTE | 2019-11-09 10:50 | Procedure Note ---
Procedure Note Date of Service November 09, 2019 THORACIC EPIDURAL INTERLAMINAR PLACEMENT Diagnosis: Acute pain secondary to right sided 9 through 12 rib fractures Level injected: T10-11 Anesthesia: local Material forwarded to lab: none Prior to starting, the Patients diagnosis and the procedure were reviewed with the patient in detail. Possible risks, complications and alternative therapies were also reviewed. Patients questions were answered. Informed consent was obtained. Allergies and medication list was reviewed. The patient was placed in the seated position on the table. Immediately prior to starting the procedure, a ``time out was conducted with the staff and the patient where the Patient was identified, proposed procedure was verified, consent was reviewed and the proper site for the planned procedure was identified. Monitors used included intermittent blood pressure with an automated device, continuous pulse oximetry and level of consciousness. Patient was not given any intravenous sedation and constant verbal contact was maintained throughout the procedure. The thoracic spine area was prepped with duraprep and betadine solution. Sterile drapes were applied. 1% lidocaine, 3 cc, was infiltrated in the skin and subcutaneous tissues using a 27 gauge needle. A 17 gauge, 3.5 inch Tuohy needle was then inserted through the anesthetized area and advanced into the the ligamentum flavum into the epidural space via midline approach with [id number] technique with saline at the level of 5.5 cm. Upon entering the epidural space the patient did not experience pain or paresthesia. Bevel of the needle was directed in the cephalad direction. The epidural catheter was subsequently threaded without resistance to 10 cm. Next, 4 mL of 1.5% lidocaine with 1-200 and thousand epinephrine was provided for a test bolus after negative aspiration of the catheter for CSF or heme. Patient did not experience any pain, paresthesia or discomfort throughout the injection period. Needle was withdrawn. Adequate hemostasis was noted. A sterile Tegaderm was applied at the site. Patient was then placed in supine position. Next, fentanyl 100 mcg and 5 mL of 0.25% bupivacaine plain was injected after negative aspiration of the epidural catheter. Patient's blood pressure and vital signs remained stable after bolus dosing. Report was given to the ICU nurse and the epidural will be connected to standard epidural solution to run at 8 mL/h without PCEA dosing Coding
[2019-11-09] MEDS ORDERED: NSS + 20MEQ KCL 20 MEQ/1,000 ML BAG IV SCH (11:30)
[2019-11-09] MEDS ORDERED: predniSONE 50 MG TAB PO ONE (12:00)
[2019-11-09 12:39] LABS: Basophil Body Fluid Man 0 %; Eosinophil Body Fluid Man 0 %; Fluid Mono/Macrophage 6 %; Lymphocyte Body Fluid Man 4 %; Neutrophil Body Fluid Man 90 %
[2019-11-09] MEDS ORDERED: chlordiazePOXIDE ALCOHOL WITHDRAWL 25MG PO STA (13:21)
[2019-11-09] MEDS: FENTANYL EPI PRN (13:28)
[2019-11-09] MEDS: BUPIVACAINE 0.0625% EPI PRN (13:28)
[2019-11-09] MEDS ORDERED: chlordiazePOXIDE HCl 25 MG CAP PO SCH (14:00)
[2019-11-09] MEDS: SODIUM CHLORIDE 0.9% 1000ML 1,000 ML IV SCH (14:02)
--- NOTE | 2019-11-09 14:25 | XCELERA ---
[id number] \\[email or web address]\[id number]
--- NOTE | 2019-11-09 14:53 | Hospitalist Progress Note ---
Date of Service November 09, 2019 Assessment & Plan (1) Hypoxemia: initially related to fx and splinted breathing - now worsening appears to be due to significant atelectasis plus most probably secondary pneumonia (worse hypoxia, fever, tachypnea) -CT chest as rec'd by ICU -stat CBC, CMP, ABG, procalcitonin -levaquin abx coverage for gm neg and atypical -move to ICU -supportive care -ongoing clinical vigilance for any other s/s concomitant processes but thus far current situation does fit with working dx quite well -pain consult for block vs epidural as discussed w ICU Admission and Anticipated Discharge Date Admission Date: November 08, 2019 Subjective called this AM regarding worsening hypoxia and fevers. worse pain as well. had been on hi flow NC through the night but still only in mid to high 80's despite the high FiO2 of the high flow NC. given concerns on COVID19 and a questionable social media post about when one could work after being exposed to covid19 i gave the verbal OK for airborne at least until we were able to sort the situation out. chart reviewed, orders placed, case d/w dr ford given the pt requiring move to ICU. dr ford promptly assessed pt and assumed primary role in care; input greatly appreciated. after further review and discussions w infection control agree w ICU standpoint that he has significant alternate explanation for his worsening far more in line with his primary illness. Physical Exam Physical Exam: in bed appearing uncomfortable - mild/mod degree of respiratory distress mild accessory muscles. Results & Data Results & Data ([facility]) Vital Signs (Past 12 Hours) Vital Signs Temp Pulse Pulse Resp BP BP Pulse Ox 11/09/19 14:22 102 H 28 H 130/88 89 L 11/09/19 14:17 105 H 22 121/78 90 11/09/19 14:15 99 H 21 90 11/09/19 14:12 104 H 21 125/78 89 L 11/09/19 14:07 99 H 24 125/71 90 11/09/19 14:02 102 H 31 H 121/70 91 11/09/19 14:00 104 H 31 H 92 11/09/19 13:57 95 H 31 H 130/69 91 11/09/19 13:52 100 H 31 H 123/69 92 11/09/19 13:47 94 H 29 H 123/70 92 11/09/19 13:45 93 H 30 H 92 11/09/19 13:42 100 H 30 H 125/72 93 11/09/19 13:38 97 H 31 H 94 11/09/19 13:37 91 H 30 H 120/75 93 11/09/19 13:32 95 H 31 H 120/78 94 11/09/19 13:30 97 H 29 H 94 11/09/19 13:27 94 H 25 H 124/75 94 11/09/19 13:22 108 H 28 H 125/71 94 11/09/19 13:17 97 H 28 H 126/76 93 11/09/19 13:15 100 H 28 H 94 11/09/19 13:12 100 H 28 H 127/74 93 11/09/19 13:07 96 H 26 H 120/75 93 11/09/19 13:02 106 H 27 H 132/74 92 11/09/19 13:00 104 H 26 H 91 11/09/19 12:57 110 H 30 H 124/73 92 11/09/19 12:52 113 H 29 H 127/76 92 11/09/19 12:47 105 H 30 H 125/73 92 11/09/19 12:45 104 H 30 H 92 11/09/19 12:42 97 H 30 H 123/78 92 11/09/19 12:37 103 H 30 H 128/74 91 11/09/19 12:31 96 H 28 H 125/76 92 11/09/19 12:30 101 H 30 H 92 11/09/19 12:26 98 H 30 H 119/74 93 11/09/19 12:21 96 H 29 H 127/75 93 11/09/19 12:16 112 H 30 H 125/75 94 11/09/19 12:15 100 H 31 H 95 11/09/19 12:11 100 H 29 H 121/81 95 11/09/19 12:06 102 H 31 H 131/81 95 11/09/19 12:01 103 H 30 H 129/84 95 11/09/19 12:00 106 H 32 H 94 11/09/19 11:56 107 H 33 H 141/84 H 94 11/09/19 11:51 119 H 33 H 132/85 87 L 11/09/19 11:47 114 H 35 H 119/79 89 L 11/09/19 11:45 113 H 36 H 89 L 11/09/19 11:42 116 H 37 H 117/89 87 L 11/09/19 11:40 104 H 30 H 117/89 91 11/09/19 11:37 115 H 25 H 125/83 87 L 11/09/19 11:35 85 26 H 124/70 90 11/09/19 11:31 80 32 H 124/70 89 L 11/09/19 11:30 80 31 H 118/68 88 L 11/09/19 11:27 87 36 H 118/68 87 L 11/09/19 11:25 26 H 121/76 90 11/09/19 11:21 109 H 17 121/76 92 11/09/19 11:20 114 H 27 H 121/76 93 11/09/19 11:16 98 H 35 H 127/78 91 11/09/19 11:15 96 H 33 H 127/78 89 L 11/09/19 11:13 77 19 123/74 91 11/09/19 11:10 91 H 24 124/71 94 11/09/19 11:00 63 27 H 92 11/09/19 10:55 67 25 H 122/70 92 11/09/19 10:45 83 24 93 11/09/19 10:30 81 24 94 11/09/19 10:28 81 23 93 11/09/19 10:25 90 21 108/79 93 11/09/19 10:21 80 22 120/66 94 11/09/19 10:19 77 23 130/77 92 11/09/19 10:17 85 21 124/73 92 11/09/19 10:15 99.3 F 80 23 92 11/09/19 09:30 87 24 93 11/09/19 08:50 105 H 32 H 85 L 11/09/19 07:25 102.4 F H 11/09/19 07:23 104 H 24 87 L 11/09/19 07:00 102.4 F H 95 H 22 143/63 H 90 11/09/19 05:21 100.4 F H 11/09/19 04:35 72 22 90 PG Care Time/CCT Total # of Minutes Spent Total Time Spent with Patient: Total time spent is greater than 50% in coordination of care (as documented) at patient's floor/unit and/or counseling patient: Coding Level of Care Code 08870 Subseq Hosp Care Lvl 1 Diagnoses Hypoxemia R09.02
[2019-11-09] MEDS: MONTELUKAST SODIUM 10 MG TABLET PO SCH (22:17)
[2019-11-10] MEDS: BUPIVACAINE 0.0625% EPI PRN ×2 (01:54→14:31)
[2019-11-10] MEDS: FENTANYL EPI PRN ×2 (01:54→14:31)
[2019-11-10 04:14] LABS: Basophils # (auto) 0.01 K/uL (0-0.2); Basophils % (auto) 0.1 %; Eosinophils # (auto) 0.02 K/uL (0-0.5); Eosinophils % (auto) 0.2 %; Hematocrit (blood only) 39.3 % (42-52); Hemoglobin 13.3 g/dL (14.0-18.0); Immature Granulocytes # (auto) 0.03 K/uL (0.00-0.02); Immature Granulocytes % (auto) 0.2 %; Lymphocytes # (auto) 1.48 K/uL (1.2-3.4); Lymphocytes % (auto) 12.2 %; Mean Corpuscular Hemoglobin 30.4 pg (25-34); Mean Corpuscular Hgb Conc 33.8 g/dL (32-36); Mean Corpuscular Volume 89.7 fL (80-100); Mean Platelet Volume 8.5 fL (7.4-10.4); Monocytes # (auto) 1.02 K/uL (0.11-0.59); Monocytes % (auto) 8.4 %; Neutrophils # (auto) 9.61 K/uL (1.4-6.5); Neutrophils % (auto) 78.9 %; Platelet Count 241 K/uL (130-400); RDW Coefficient of Variation 12.5 % (11.5-14.5); RDW Standard Deviation 41.3 fL (36.4-46.3); Red Blood Count 4.38 M/uL (4.7-6.1); White Blood Count 12.17 K/uL (4.8-10.8)
[2019-11-10 04:35] LABS: Albumin Level 3.4 gm/dl (3.4-5.0); Calcium 8.7 mg/dl (8.5-10.1); Creatinine Clr Calc Pharmacy 175.7 ml/min; Est GFR (African American) 136.2; Est GFR (Non-African American) 117.5; Magnesium 2.4 mg/dl (1.8-2.4); Potassium 3.7 mmol/L (3.5-5.1)
[2019-11-10 04:37] LABS: Albumin Globulin Ratio 0.9 (0.9-2); Bilirubin,Total 0.7 mg/dl (0.2-1); Total Protein 7.4 gm/dl (6.4-8.2)
[2019-11-10] MEDS ORDERED: GABAPENTIN 600 MG TAB PO SCH (06:00)
--- NOTE | 2019-11-10 07:03 | XRay Report ---
XR chest 1V portable CLINICAL HISTORY: pneumonia COMPARISON STUDY: 11/06/2019, CT scan dated 11/09/2019 FINDINGS: There are right basilar airspace opacities, lobar atelectasis versus pneumonia. There is a possible associated pleural effusion. The multifocal airspace opacity described in the prior CT scan are not visible on conventional radiographic evaluation.[ IMPRESSION: Right basilar airspace opacities, lobar atelectasis versus pneumonia. ACT 112: Negative or not required by law. Electronically signed by: Jun Harrell M.D. 11/10/2019 7:01 AM
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
[2019-11-10] MEDS: NICOTINE 21 MG/24 HR TDSY TD SCH ×2 (09:00→10:23)
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
[2019-11-10] MEDS: FEXOFENADINE HCL 180 MG TAB PO SCH (10:22)
[2019-11-10] MEDS: MULTIVITAMIN TAB PO SCH (10:23)
[2019-11-10] MEDS: LIDOCAINE 5% 1 PATCH TD SCH (10:23)
[2019-11-10] MEDS: ACETAMINOPHEN 325 MG TAB PO SCH ×3 (10:24→21:53)
[2019-11-10] MEDS: PANTOprazole 40 MG TAB PO SCH (10:24)
[2019-11-10] MEDS: predniSONE 50 MG TAB PO SCH (10:24)
[2019-11-10] MEDS: LEVOFLOXACIN/D5W 750 MG/150 ML BAG IV SCH (10:37)
[2019-11-10] MEDS: UMECLIDINIUM BROMIDE 62.5MCG/BLISTER 7 PUFFS/INHALER INH SCH (10:38)
[2019-11-10] MEDS: FLUTICASONE/VILANTEROL 200/25MCG 14 PUFFS/INHALER INH SCH (10:39)
[2019-11-10] MEDS ORDERED: SODIUM CHLOR 7% 4 ML NEB NEB ONE (10:45)
[2019-11-10] MEDS: SODIUM CHLORIDE 0.9% 1000ML 1,000 ML IV SCH (14:30)
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
[2019-11-10] MEDS: SODIUM CHLOR 7% 4 ML NEB NEB SCH (19:44)
[2019-11-10] MEDS: MONTELUKAST SODIUM 10 MG TABLET PO SCH (21:53)
[2019-11-11] MEDS: FENTANYL EPI PRN ×2 (00:45→12:51)
[2019-11-11] MEDS: BUPIVACAINE 0.0625% EPI PRN ×2 (00:45→12:51)
[2019-11-11 04:51] LABS: Basophils # (auto) 0.02 K/uL (0-0.2); Basophils % (auto) 0.2 %; Eosinophils # (auto) 0.04 K/uL (0-0.5); Eosinophils % (auto) 0.4 %; Hematocrit (blood only) 39.9 % (42-52); Hemoglobin 13.4 g/dL (14.0-18.0); Immature Granulocytes # (auto) 0.02 K/uL (0.00-0.02); Immature Granulocytes % (auto) 0.2 %; Lymphocytes # (auto) 2.01 K/uL (1.2-3.4); Lymphocytes % (auto) 18.1 %; Mean Corpuscular Hemoglobin 30.2 pg (25-34); Mean Corpuscular Hgb Conc 33.6 g/dL (32-36); Mean Corpuscular Volume 90.1 fL (80-100); Mean Platelet Volume 8.9 fL (7.4-10.4); Monocytes # (auto) 1.03 K/uL (0.11-0.59); Monocytes % (auto) 9.3 %; Neutrophils # (auto) 7.98 K/uL (1.4-6.5); Neutrophils % (auto) 71.8 %; Platelet Count 265 K/uL (130-400); RDW Coefficient of Variation 12.7 % (11.5-14.5); RDW Standard Deviation 41.9 fL (36.4-46.3); Red Blood Count 4.43 M/uL (4.7-6.1)
[2019-11-11 05:11] LABS: Albumin Level 3.3 gm/dl (3.4-5.0); BUN Creatinine Ratio 20.5 (10-20); Est GFR (African American) 137.5; Est GFR (Non-African American) 118.7; Potassium 3.5 mmol/L (3.5-5.1)
[2019-11-11 05:13] LABS: Albumin Globulin Ratio 0.8 (0.9-2); Bilirubin,Total 0.3 mg/dl (0.2-1); Globulin 3.9 gm/dl (2.5-4.0); Total Protein 7.2 gm/dl (6.4-8.2)
[2019-11-11] MEDS ORDERED: POTASSIUM CHLORIDE 20 MEQ TABCR PO STA (05:29)
[2019-11-11] MEDS: SODIUM CHLOR 7% 4 ML NEB NEB SCH ×2 (06:43→19:40)
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
[2019-11-11] MEDS: FEXOFENADINE HCL 180 MG TAB PO SCH (09:06)
[2019-11-11] MEDS: LIDOCAINE 5% 1 PATCH TD SCH (09:07)
[2019-11-11] MEDS: predniSONE 50 MG TAB PO SCH (09:07)
[2019-11-11] MEDS: PANTOprazole 40 MG TAB PO SCH (09:07)
[2019-11-11] MEDS: FLUTICASONE/VILANTEROL 200/25MCG 14 PUFFS/INHALER INH SCH (09:07)
[2019-11-11] MEDS: MULTIVITAMIN TAB PO SCH (09:07)
[2019-11-11] MEDS: ACETAMINOPHEN 325 MG TAB PO SCH ×3 (09:08→20:59)
[2019-11-11] MEDS: UMECLIDINIUM BROMIDE 62.5MCG/BLISTER 7 PUFFS/INHALER INH SCH (09:08)
[2019-11-11] MEDS: NICOTINE 21 MG/24 HR TDSY TD SCH (09:08)
[2019-11-11] MEDS: LEVOFLOXACIN/D5W 750 MG/150 ML BAG IV SCH (09:10)
[2019-11-11] MEDS: DOCUSATE SODIUM 100 MG CAP PO PRN (09:19)
[2019-11-11] MEDS ORDERED: PPD CHECK ONE (10:00)
[2019-11-11] MEDS ORDERED: GABAPENTIN 600 MG TAB PO SCH (10:00)
[2019-11-11] MEDS: SODIUM CHLORIDE 0.9% 1000ML 1,000 ML IV SCH (11:00)
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
[2019-11-11] MEDS: MONTELUKAST SODIUM 10 MG TABLET PO SCH (21:00)
[2019-11-12] MEDS: FENTANYL EPI PRN ×2 (00:30→12:10)
[2019-11-12] MEDS: BUPIVACAINE 0.0625% EPI PRN ×2 (00:30→12:10)
[2019-11-12 06:08] LABS: Basophils # (auto) 0.02 K/uL (0-0.2); Basophils % (auto) 0.2 %; Eosinophils # (auto) 0.05 K/uL (0-0.5); Eosinophils % (auto) 0.6 %; Hematocrit (blood only) 40.1 % (42-52); Hemoglobin 13.3 g/dL (14.0-18.0); Immature Granulocytes # (auto) 0.03 K/uL (0.00-0.02); Immature Granulocytes % (auto) 0.3 %; Lymphocytes # (auto) 2.23 K/uL (1.2-3.4); Lymphocytes % (auto) 24.7 %; Mean Corpuscular Hgb Conc 33.2 g/dL (32-36); Mean Corpuscular Volume 90.5 fL (80-100); Mean Platelet Volume 9.1 fL (7.4-10.4); Monocytes # (auto) 0.85 K/uL (0.11-0.59); Monocytes % (auto) 9.4 %; Neutrophils # (auto) 5.86 K/uL (1.4-6.5); Neutrophils % (auto) 64.8 %; Platelet Count 283 K/uL (130-400); RDW Coefficient of Variation 12.9 % (11.5-14.5); RDW Standard Deviation 42.1 fL (36.4-46.3); Red Blood Count 4.43 M/uL (4.7-6.1); White Blood Count 9.04 K/uL (4.8-10.8)
[2019-11-12 06:41] LABS: Albumin Level 3.2 gm/dl (3.4-5.0); BUN Creatinine Ratio 18.1 (10-20); Calcium 8.9 mg/dl (8.5-10.1); Creatinine Clr Calc Pharmacy 164.7 ml/min; Est GFR (African American) 134.2; Est GFR (Non-African American) 115.8; Potassium 3.6 mmol/L (3.5-5.1)
[2019-11-12 06:44] LABS: Albumin Globulin Ratio 0.8 (0.9-2); Bilirubin,Total 0.3 mg/dl (0.2-1); Globulin 3.8 gm/dl (2.5-4.0)
[2019-11-12] MEDS: SODIUM CHLOR 7% 4 ML NEB NEB SCH (06:56)
[2019-11-12] MEDS: NICOTINE 21 MG/24 HR TDSY TD SCH (08:54)
[2019-11-12] MEDS: LEVOFLOXACIN/D5W 750 MG/150 ML BAG IV SCH (08:54)
[2019-11-12] MEDS: predniSONE 10 MG TABLET PO SCH (08:54)
[2019-11-12] MEDS: UMECLIDINIUM BROMIDE 62.5MCG/BLISTER 7 PUFFS/INHALER INH SCH (08:55)
[2019-11-12] MEDS: PANTOprazole 40 MG TAB PO SCH (08:55)
[2019-11-12] MEDS: FLUTICASONE/VILANTEROL 200/25MCG 14 PUFFS/INHALER INH SCH (08:55)
[2019-11-12] MEDS: MULTIVITAMIN TAB PO SCH (08:55)
[2019-11-12] MEDS: FEXOFENADINE HCL 180 MG TAB PO SCH (08:55)
[2019-11-12] MEDS: LIDOCAINE 5% 1 PATCH TD SCH (08:56)
[2019-11-12] MEDS: ACETAMINOPHEN 325 MG TAB PO SCH ×3 (08:58→20:40)
[2019-11-12] MEDS ORDERED: predniSONE 10 MG TABLET PO SCH (09:00)
[2019-11-12] MEDS: SODIUM CHLORIDE 0.9% 1000ML 1,000 ML IV SCH (15:15)
--- NOTE | 2019-11-12 16:58 | Pain Management Progress Note ---
Date of Service November 12, 2019 Assessment & Plan (1) Acute pain: 1. Pt continues to do well. Will plan to pull epidural on 11/12-11/13 or sooner if patient condition permits. Continue with current std solution bag at 8ml/hr. 2. May continue to utilize morphine 2mg IV q2 prn breakthrough pain. 3. Will plan to transition to norco vs percocet at time of epidural d/c. 4. Will continue to follow. (2) Acute hypoxemic respiratory failure: (3) Multiple fractures of ribs of right side: Encounter type: subsequent encounter Fracture healing: with routine healing Fracture type: closed Qualified Code(s): S22.41XD - Multiple fractures of ribs, right side, subsequent encounter for fracture with routine healing (4) Right pulmonary contusion: Encounter type: initial encounter Qualified Code(s): S27.321A - Contusion of lung, unilateral, initial encounter (5) Asthma: (6) Hypoxemia: Subjective feeling better wonders about when he can go home but once we talk about that he has epidural in and that is part of why he feels so good he realizes. no f/c/s. no cp, far less sob.
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
[2019-11-12] MEDS: MONTELUKAST SODIUM 10 MG TABLET PO SCH (20:41)
[2019-11-12] MEDS ORDERED: chlordiazePOXIDE HCl 5 MG CAP PO SCH (21:00)
[2019-11-12] MEDS ORDERED: GABAPENTIN 600 MG TAB PO SCH (22:00)
[2019-11-13] MEDS: BUPIVACAINE 0.0625% EPI PRN (00:25)
[2019-11-13] MEDS: FENTANYL EPI PRN (00:25)
[2019-11-13] MEDS ORDERED: levoFLOXacin 750 MG TAB PO ONE (09:15)
[2019-11-13] MEDS: FLUTICASONE/VILANTEROL 200/25MCG 14 PUFFS/INHALER INH SCH (09:38)
[2019-11-13] MEDS: UMECLIDINIUM BROMIDE 62.5MCG/BLISTER 7 PUFFS/INHALER INH SCH (09:38)
[2019-11-13] MEDS: predniSONE 10 MG TABLET PO SCH (09:39)
[2019-11-13] MEDS: LIDOCAINE 5% 1 PATCH TD SCH (09:39)
[2019-11-13] MEDS: MULTIVITAMIN TAB PO SCH (09:39)
[2019-11-13] MEDS: PANTOprazole 40 MG TAB PO SCH (09:39)
[2019-11-13] MEDS: FEXOFENADINE HCL 180 MG TAB PO SCH (09:40)
[2019-11-13] MEDS: NICOTINE 21 MG/24 HR TDSY TD SCH (09:40)
[2019-11-13] MEDS: ACETAMINOPHEN 325 MG TAB PO SCH ×3 (09:42→20:28)
[2019-11-13] MEDS: SODIUM CHLORIDE 0.9% 1000ML 1,000 ML IV SCH (11:10)
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
[2019-11-13] MEDS: DOCUSATE SODIUM 100 MG CAP PO PRN (18:48)
[2019-11-13] MEDS: MONTELUKAST SODIUM 10 MG TABLET PO SCH (20:28)
[2019-11-14] MEDS: BUPIVACAINE 0.0625% EPI PRN (03:53)
[2019-11-14] MEDS: FENTANYL EPI PRN (03:53)
[2019-11-14] MEDS: PANTOprazole 40 MG TAB PO SCH (07:42)
[2019-11-14] MEDS: predniSONE 10 MG TABLET PO SCH (07:43)
[2019-11-14] MEDS: FEXOFENADINE HCL 180 MG TAB PO SCH (07:43)
[2019-11-14] MEDS: MULTIVITAMIN TAB PO SCH (07:43)
[2019-11-14] MEDS: NICOTINE 21 MG/24 HR TDSY TD SCH (07:44)
[2019-11-14] MEDS: LIDOCAINE 5% 1 PATCH TD SCH (07:44)
[2019-11-14] MEDS: FLUTICASONE/VILANTEROL 200/25MCG 14 PUFFS/INHALER INH SCH (07:45)
[2019-11-14] MEDS: UMECLIDINIUM BROMIDE 62.5MCG/BLISTER 7 PUFFS/INHALER INH SCH (07:45)
[2019-11-14] MEDS: ACETAMINOPHEN 325 MG TAB PO SCH ×3 (07:47→21:02)
--- NOTE | 2019-11-14 08:09 | Anesthesia Procedure Note ---
Date of Service November 14, 2019 Anesthesia Post Epidural Note Vital Signs Vital Signs: Temp Pulse Resp BP Pulse Ox 36.7 C 57 L 18 120/66 95 11/14/19 07:12 11/14/19 07:12 11/14/19 07:12 11/14/19 07:12 11/14/19 07:12 Pain Intensity Right Ribs: Pain Intensity: 2 Notes Mental Status: alert / awake / arousable and participated in evaluation Patient Amnestic to Procedure: Yes Nausea / Vomiting: adequately controlled Pain: adequately controlled Airway Patency, RR, SpO2: stable & adequate BP & HR: stable & adequate Hydration State: stable & adequate Anesthetic Complications: no major complications apparent and Pt Satisfied with anesthetic care
[2019-11-14] MEDS: SODIUM CHLORIDE 0.9% 1000ML 1,000 ML IV SCH (10:54)
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
[2019-11-14] MEDS: MONTELUKAST SODIUM 10 MG TABLET PO SCH (21:03)
[2019-11-15 05:06] LABS: Basophils # (auto) 0.03 K/uL (0-0.2); Basophils % (auto) 0.3 %; Eosinophils # (auto) 0.14 K/uL (0-0.5); Eosinophils % (auto) 1.2 %; Hemoglobin 13.9 g/dL (14.0-18.0); Immature Granulocytes # (auto) 0.33 K/uL (0.00-0.02); Immature Granulocytes % (auto) 2.8 %; Lymphocytes # (auto) 2.74 K/uL (1.2-3.4); Lymphocytes % (auto) 23.3 %; Mean Corpuscular Hemoglobin 30.3 pg (25-34); Mean Corpuscular Hgb Conc 33.9 g/dL (32-36); Mean Corpuscular Volume 89.5 fL (80-100); Mean Platelet Volume 8.5 fL (7.4-10.4); Monocytes # (auto) 1.14 K/uL (0.11-0.59); Monocytes % (auto) 9.7 %; Neutrophils % (auto) 62.7 %; Platelet Count 323 K/uL (130-400); RDW Coefficient of Variation 12.9 % (11.5-14.5); RDW Standard Deviation 41.5 fL (36.4-46.3); Red Blood Count 4.58 M/uL (4.7-6.1); White Blood Count 11.78 K/uL (4.8-10.8)
[2019-11-15 05:21] LABS: BUN Creatinine Ratio 20.8 (10-20); Creatinine Clr Calc Pharmacy 170.9 ml/min; Est GFR (African American) 136.2; Est GFR (Non-African American) 117.5; Potassium 4.3 mmol/L (3.5-5.1)
[2019-11-15] MEDS: PANTOprazole 40 MG TAB PO SCH (07:56)
[2019-11-15] MEDS: MULTIVITAMIN TAB PO SCH (07:56)
[2019-11-15] MEDS: LIDOCAINE 5% 1 PATCH TD SCH (07:56)
[2019-11-15] MEDS: NICOTINE 21 MG/24 HR TDSY TD SCH (07:57)
[2019-11-15] MEDS: predniSONE 10 MG TABLET PO SCH (07:57)
[2019-11-15] MEDS: FEXOFENADINE HCL 180 MG TAB PO SCH (07:57)
[2019-11-15] MEDS: UMECLIDINIUM BROMIDE 62.5MCG/BLISTER 7 PUFFS/INHALER INH SCH (07:58)
[2019-11-15] MEDS: SODIUM CHLORIDE 0.9% 1000ML 1,000 ML IV SCH (07:58)
[2019-11-15] MEDS: FLUTICASONE/VILANTEROL 200/25MCG 14 PUFFS/INHALER INH SCH (07:58)
[2019-11-15] MEDS: ACETAMINOPHEN 325 MG TAB PO SCH (08:00)
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
== END 2019-11-15 12:01 | disposition home or self-care (01) | DRG 183 ==
LOC: ED 21:23 → SUATTDRO 11-08 01:04 → 2N 11-08 01:04 → 1E 11-09 09:22 → 2E 11-11 11:09
DX: Z79.899 Other long term (current) drug therapy; F17.210 Nicotine dependence, cigarettes, uncomplicated; J96.01 Acute respiratory failure with hypoxia; V49.9XXA Car occupant (driver) (passenger) injured in unspecified traffic accident, initial encounter; Z72.89 Other problems related to lifestyle; G47.33 Obstructive sleep apnea (adult) (pediatric); J98.11 Atelectasis; K21.9 Gastro-esophageal reflux disease without esophagitis; Z91.19 Patient's noncompliance with other medical treatment and regimen; S22.41XA Multiple fractures of ribs, right side, initial encounter for closed fracture; J45.909 Unspecified asthma, uncomplicated; S27.321A Contusion of lung, unilateral, initial encounter; K76.0 Fatty (change of) liver, not elsewhere classified

== ENCOUNTER 2021-12-23 22:15 | Observation (INO) ==
[2021-12-23] MEDS ORDERED: ACETAMINOPHEN 500 MG TAB PO STA (22:39)
[2021-12-23] MEDS ORDERED: SODIUM CHLORIDE 0.9% 1000ML 1,000 ML IV ONE (23:33)
[2021-12-23] MEDS ORDERED: KETOROLAC TROMETHAMINE 15 MG/ML VIAL IV STA (23:33)
--- NOTE | 2021-12-23 23:41 | Emergency Department Note ---
Impression & Plan Fever, Acute tonsillitis, Cough, Hypoxia, Adenovirus infection, Acute tracheitis ED Provider Note INFORMANT: Patient ED PROVIDER(S): Edouard Santiago MD CHIEF COMPLAINT: Fever PLAN: Disposition: Admitted Condition: Good Outpatient prescription management: none Referral: None MEDICAL DECISION MAKING: Patient presented because of continued fever and difficulty breathing. He had coarse upper airway sounds but no significant stridor. No tripoding or drooling. He had an IV established. Blood cultures were ordered. Chest x-ray was unremarkable. He was hydrated. He was given oral Tylenol and IV Toradol. Unfortunate with that his temperature did go up. Patient had a bio fire test performed and revealed the presence of adenovirus. COVID-negative. He underwent soft tissues imaging of the neck by CT an radiology interpretation is pending Additional fluids were given. The patient was noted to have an O2 saturation that dropped to 88% on room air. He did very well with supplemental oxygen. Given his cough and respiratory symptoms without obvious evidence of pneumonia there is concerns for tracheitis. He was given a dose of IV Decadron and empirically covered with IV Rocephin. Further management and treatment will be necessary in the hospital. Consultation was made with Dr. Anil Montes of the [facility] service. Patient was evaluated in the ER for further management. Triage Nursing notes reviewed and agree them. Vital Signs: reviewed and remarkable for fever Differential diagnosis: Viral syndrome, otitis, pharyngitis, pneumonia, influenza, meningitis, urinary tract infection, sepsis, bacteremia, peritonsillar abscess, retropharyngeal abscess, epiglottitis, tracheitis, bronchitis, as well as other pathologies. Diagnostics interpreted by me: ECG: none Cardiac Monitoring: Cardiac monitoring ordered by me: The patient was placed on continuous cardiac monitoring and observed. It revealed a normal sinus rhythm at 85 beats per minute without ectopy or evidence of dysrhythmia. Imaging studies: Chest x-ray negative for acute process. CT scanning of the neck soft tissues pending at this time. HPI: The patient is a 31 year old male who presents to the Emergency Room with complaints of sore throat. This started 4 days ago and is worsening. The patient also notes the following associated symptoms, fever up to 105 today, cough, hoarse voice, difficulty breathing, headache, low back pain. Patient states COVID testing as an outpatient was negative. The patient has been seen by primary care and prescribed prednisone for relieving factors. Current pain is rated as 5/10. Pt denies LOC, diaphoresis, visual changes, neck pain, chest pain, nausea, vomiting, abdominal pain, diarrhea, urinary symptoms, numbness, weakness, lymphadenopathy, rash, or other complaints. ROS: See above HPI for pertinent positives & negatives. A total of 10 systems reviewed and were otherwise negative. PAST MEDICAL HISTORY:See Below , tracheomalacia PAST SURGICAL HISTORY:See Below, FAMILY HISTORY:See Below SOCIAL HISTORY:See Below, smoker HOME MEDICATIONS:See Below ALLERGIES:See Below VITALS:See Below PHYSICAL EXAMINATION: GENERAL: Awake, alert, mildly ill appearing, no distress HEAD: Normocephalic, atraumatic. No edema. EYES: Normal conjunctiva. Sclera non-icteric. EARS: External ears are normal. NOSE: No congestion. OROPHARYNX: Lips, tongue, and mucosa unremarkable. Posterior erythema and exudate noted on the left tonsil uvula midline. NECK: Supple. No nuchal rigidity. FROM. No adenopathy. RESPIRATORY: CTA bilaterally. No wheezes rales or rhonchi. CARDIAC: Borderline tachycardic rate, normal rhythm. ABDOMEN: Soft, non distended. No tenderness to palpation. NEURO: Normal sensorium. SKIN: No rash or jaundice noted. Edouard Santiago MD Past Med/Surg History Medical History (Updated 12/24/21 @ 01:28 by Edouard Santiago MD) Acute bronchitis Asthma Bronchitis Diarrhea Diarrhea of presumed infectious origin (10/01/14) Exacerbation of asthma Fever Hypoxia Multiple fractures of ribs of right side Salmonella dysentery Thrush, oral Surgical History H/O foot surgery Family History Other Asthma Hypertension Seasonal allergies Social History Smoking Status: Current every day smoker Tobacco Type: Cigarettes Cigarettes Per Day: 20; Hx Alcohol Use: Yes Alcohol type: beer Hx Substance Use: No Preferred Language: [place] Communication Ability: Effective Visual Impairment: No Limitations Hearing Ability: Normal Dimmer Board Operator Required: No Beliefs That Will Affect Care: None Current Living Situation: Parent and Family Current Living Situation Comment: dad, gram, and son current occupational status: employed Feels Safe at Home: Yes Assistive Devices: None Allergies Allergies Allergy/AdvReac Type Severity Reaction Status Date / Time No Known Allergies Allergy Unknown Verified 12/23/21 23:07 Home Meds Home Medications Medication Instructions Recorded Confirmed albuterol sulfate 90 mcg/actuation 2 puff INHALATION Q6H PRN 07/25/18 12/23/21 aerosol inhaler (Ventolin HFA) esomeprazole magnesium 40 mg 40 mg PO DAILY 07/25/18 12/23/21 capsule,delayed release (Nexium) multivitamin 1 tab PO DAILY 07/25/18 12/23/21 prednisone 20 mg tablet 40 mg PO DAILY 12/23/21 12/23/21 Previous Rx's Medication Instructions Recorded tiotropium bromide 18 mcg capsule 1 cap INHALATION DAILY #90 inh 02/26/21 with inhalation device (Spiriva with HandiHaler) budesonide-formoterol HFA 80 2 puff INHALATION BID #10.2 g 12/04/21 mcg-4.5 mcg/actuation aerosol inhaler (Symbicort) Results & Data (ED) Vital Signs Vital Signs - 24 hr 12/23/21 22:18 12/24/21 00:15 12/24/21 00:16 Temperature 38.7 C H Temperature Source Temporal Artery Scan Pulse Rate 103 H Pulse Rate [Right Finger] 85 Respiratory Rate 22 22 Respiratory Effort / Characteristics Non-Labored Spontaneous Respiratory Depth Normal Blood Pressure 139/66 Blood Pressure [Right Arm] 136/78 Blood Pressure Mean 90 Blood Pressure Mean [Right Arm] 97 Pulse Oximetry 94 88 L 96 Oxygen Delivery Method Room Air Room Air Oxygen Flow Rate 5 Sepsis Recent Fever Within 48 Hours No Sepsis New/Unexplained Change in Mental Status No Sepsis Action Taken by Nursing Physician Notified 12/24/21 01:00 Temperature 39.0 C H Temperature Source Oral Pulse Rate Pulse Rate [Right Finger] Respiratory Rate Respiratory Effort / Characteristics Respiratory Depth Blood Pressure Blood Pressure [Right Arm] Blood Pressure Mean Blood Pressure Mean [Right Arm] Pulse Oximetry Oxygen Delivery Method Oxygen Flow Rate Sepsis Recent Fever Within 48 Hours Sepsis New/Unexplained Change in Mental Status Sepsis Action Taken by Nursing Laboratory Data Result diagrams: 12/23/21 23:29 12/23/21 23:29 Lab Results 12/23/21 12/23/21 12/23/21 Range/Units 23:29 23:29 23:29 WBC 8.32 (4.8-10.8) K/uL RBC 4.87 (4.7-6.1) M/uL Hgb 15.6 (14.0-18.0) g/dL Hct 45.0 (42-52) % MCV 92.4 (80-100) fL MCH 32.0 (25-34) pg MCHC 34.7 (32-36) g/dL RDW Std Deviation 43.2 (36.4-46.3) fL RDW Coeff of Anant 12.7 (11.5-14.5) % Plt Count 229 (130-400) K/uL MPV 9.3 (7.4-10.4) fL Immature Gran % (Auto) 0.1 % Neut % (Auto) 70.9 % Lymph % (Auto) 17.8 % [place] % (Auto) 10.8 % Eos % (Auto) 0.2 % Baso % (Auto) 0.2 % Neut # (Auto) 5.89 (1.4-6.5) K/uL Lymph # (Auto) 1.48 (1.2-3.4) K/uL [place] # (Auto) 0.90 H (0.11-0.59) K/uL Eos # (Auto) 0.02 (0-0.5) K/uL Baso # (Auto) 0.02 (0-0.2) K/uL Immature Gran # (Auto) 0.01 (0.00-0.02) K/uL Sodium 137 (136-145) mmol/L Potassium 3.4 L (3.5-5.1) mmol/L Chloride 101 (98-107) mmol/L Carbon Dioxide 27 (21-32) mmol/L Anion Gap 9 (3-11) BUN 20 (6-23) mg/dl Creatinine 1.00 (0.6-1.4) mg/dl Est Cr Clr Drug Dosing 135.5 ml/min Est GFR ( Amer) 114.9 ml/min Est GFR (Non-Af Amer) 99.1 ml/min BUN/Creatinine Ratio 20.0 (10-20) Glucose 98 (70-99(Fasting)) mg/dl Lactate (0.4-2.0) mmol/L Calcium 8.9 (8.5-10.1) mg/dl Total Bilirubin 0.3 (0.2-1.0) mg/dl AST 22 (13-39) U/L ALT 33 (7-52) U/L Alkaline Phosphatase 51 (34-104) U/L Total Protein 6.8 (6.0-8.3) gm/dl Albumin 4.3 (3.4-5.0) gm/dl Globulin 2.5 (2.5-4.0) gm/dl Albumin/Globulin Ratio 1.7 (0.9-2) Procalcitonin < 0.05 (0-0.5) ng/ml Adenovirus (PCR) (NotDetected) B. pertussis DNA (PCR) (NotDetected) B.parapertussis DNA PCR (NotDetected) C. pneumoniae DNA (PCR) (NotDetected) Coronavirus OC43 (PCR) (NotDetected) Coronavirus HKU1 (PCR) (NotDetected) Coronavirus 229E (PCR) (NotDetected) SARS-CoV-2 (PCR) (NotDetected) Coronavirus NL63 (PCR) (NotDetected) Monoscreen Negative (Negative) Human Metapneumovir PCR (NotDetected) Influenza Type A (PCR) (NotDetected) Influenza Type B (PCR) (NotDetected) M. pneumoniae (PCR) (NotDetected) Parainfluenza 1 (PCR) (NotDetected) Parainfluenza 2 (PCR) (NotDetected) Parainfluenza 3 (PCR) (NotDetected) Parainfluenza 4 (PCR) (NotDetected) RSV (PCR) (NotDetected) Entero/Rhino (PCR) (NotDetected) 12/23/21 12/24/21 Range/Units 23:31 00:11 WBC (4.8-10.8) K/uL RBC (4.7-6.1) M/uL Hgb (14.0-18.0) g/dL Hct (42-52) % MCV (80-100) fL MCH (25-34) pg MCHC (32-36) g/dL RDW Std Deviation (36.4-46.3) fL RDW Coeff of Anant (11.5-14.5) % Plt Count (130-400) K/uL MPV (7.4-10.4) fL Immature Gran % (Auto) % Neut % (Auto) % Lymph % (Auto) % [place] % (Auto) % Eos % (Auto) % Baso % (Auto) % Neut # (Auto) (1.4-6.5) K/uL Lymph # (Auto) (1.2-3.4) K/uL [place] # (Auto) (0.11-0.59) K/uL Eos # (Auto) (0-0.5) K/uL Baso # (Auto) (0-0.2) K/uL Immature Gran # (Auto) (0.00-0.02) K/uL Sodium (136-145) mmol/L Potassium (3.5-5.1) mmol/L Chloride (98-107) mmol/L Carbon Dioxide (21-32) mmol/L Anion Gap (3-11) BUN (6-23) mg/dl Creatinine (0.6-1.4) mg/dl Est Cr Clr Drug Dosing ml/min Est GFR ( Amer) ml/min Est GFR (Non-Af Amer) ml/min BUN/Creatinine Ratio (10-20) Glucose (70-99(Fasting)) mg/dl Lactate 1.5 (0.4-2.0) mmol/L Calcium (8.5-10.1) mg/dl Total Bilirubin (0.2-1.0) mg/dl AST (13-39) U/L ALT (7-52) U/L Alkaline Phosphatase (34-104) U/L Total Protein (6.0-8.3) gm/dl Albumin (3.4-5.0) gm/dl Globulin (2.5-4.0) gm/dl Albumin/Globulin Ratio (0.9-2) Procalcitonin (0-0.5) ng/ml Adenovirus (PCR) DETECTED A* (NotDetected) B. pertussis DNA (PCR) Not Detected (NotDetected) B.parapertussis DNA PCR Not Detected (NotDetected) C. pneumoniae DNA (PCR) Not Detected (NotDetected) Coronavirus OC43 (PCR) Not Detected (NotDetected) Coronavirus HKU1 (PCR) Not Detected (NotDetected) Coronavirus 229E (PCR) Not Detected (NotDetected) SARS-CoV-2 (PCR) Not Detected (NotDetected) Coronavirus NL63 (PCR) Not Detected (NotDetected) Monoscreen (Negative) Human Metapneumovir PCR Not Detected (NotDetected) Influenza Type A (PCR) Not Detected (NotDetected) Influenza Type B (PCR) Not Detected (NotDetected) M. pneumoniae (PCR) Not Detected (NotDetected) Parainfluenza 1 (PCR) Not Detected (NotDetected) Parainfluenza 2 (PCR) Not Detected (NotDetected) Parainfluenza 3 (PCR) Not Detected (NotDetected) Parainfluenza 4 (PCR) Not Detected (NotDetected) RSV (PCR) Not Detected (NotDetected) Entero/Rhino (PCR) Not Detected (NotDetected) Administered Medications Discontinued Medications Acetaminophen (Acetaminophen 500 Mg Tab) 1,000 mg PO ONE STA Stop: 12/23/21 22:40 Last Admin: 12/23/21 23:28 Dose: 1,000 mg Documented by: [id number] Dexamethasone Sodium Phosphate (DexamethasonePf 10 Mg/Ml Vial) 10 mg IV NOW ONE Stop: 12/24/21 01:22 Last Admin: 12/24/21 01:32 Dose: 10 mg Documented by: [id number] Sodium Chloride (Nss 1000ml) 1,000 mls @ 999 mls/hr IV .Q1H1M ONE Stop: 12/24/21 00:33 Last Admin: 12/23/21 23:40 Dose: 999 mls/hr Documented by: [id number] Sodium Chloride (Nss 1000ml) 1,000 mls @ 999 mls/hr IV .Q1H1M ONE Stop: 12/24/21 01:26 Last Admin: 12/24/21 00:57 Dose: 999 mls/hr Documented by: [id number] Ceftriaxone Sodium (Rocephin) 2,000 mg in 70 mls @ 140 mls/hr IV NOW STA Stop: 12/24/21 01:50 Last Admin: 12/24/21 01:32 Dose: 140 mls/hr Documented by: [id number] Ioversol (Optiray 320 100ml) 93 ml IV ONCE ONE Stop: 12/24/21 00:48 Last Admin: 12/24/21 00:50 Dose: 93 ml Documented by: [id number] Ketorolac Tromethamine (Ketorolac Tromethamine 15 Mg/Ml Vial) 15 mg IV NOW STA Stop: 12/23/21 23:34 Last Admin: 12/23/21 23:40 Dose: 15 mg Documented by: [id number] Discharge Plan Visit Data Chief Complaint: Fever Stated Complaint: 105.5 FEVER, TINGLING IN L HAND, SOB ED Provider: Edouard Santiago Discharge Problem: Fever, Acute tonsillitis, Cough, Hypoxia, Adenovirus infection, Acute tracheitis Forms Stand Alone Forms: [facility] Prescriptions Prescriptions: No Action budesonide-formoterol [Symbicort] 80-4.5 mcg/actuation HFA aerosol inhaler 2 puff inhalation BID Qty: 10.2 RF: 5 Spiriva with HandiHaler 18 mcg capsule, w/inhalation device 1 cap inhalation DAILY Qty: 90 RF: 2 multivitamin Tablet 1 tab PO DAILY RF: 0 esomeprazole magnesium [Nexium] 40 mg Capsule,Delayed Release(Dr/Ec) 40 mg PO DAILY RF: 0 albuterol sulfate [Ventolin HFA] 90 mcg/actuation Hfa Aerosol Inhaler 2 puff INHALATION Q6H PRN (Reason: Shortness Of Breath) RF: 0 prednisone 20 mg tablet 40 mg PO DAILY RF: 0 Referrals Referrals: Owen Campbell MD [Primary Care Provider] -
[2021-12-23 23:50] LABS: Basophils # (auto) 0.02 K/uL (0-0.2); Basophils % (auto) 0.2 %; Eosinophils # (auto) 0.02 K/uL (0-0.5); Eosinophils % (auto) 0.2 %; Hemoglobin 15.6 g/dL (14.0-18.0); Immature Granulocytes # (auto) 0.01 K/uL (0.00-0.02); Immature Granulocytes % (auto) 0.1 %; Lymphocytes # (auto) 1.48 K/uL (1.2-3.4); Lymphocytes % (auto) 17.8 %; Mean Corpuscular Hgb Conc 34.7 g/dL (32-36); Mean Corpuscular Volume 92.4 fL (80-100); Mean Platelet Volume 9.3 fL (7.4-10.4); Monocytes % (auto) 10.8 %; Neutrophils # (auto) 5.89 K/uL (1.4-6.5); Neutrophils % (auto) 70.9 %; Platelet Count 229 K/uL (130-400); RDW Coefficient of Variation 12.7 % (11.5-14.5); RDW Standard Deviation 43.2 fL (36.4-46.3); Red Blood Count 4.87 M/uL (4.7-6.1); White Blood Count 8.32 K/uL (4.8-10.8)
[2021-12-24 00:18] LABS: Monotest Negative (Negative)
[2021-12-24 00:26] LABS: Albumin Globulin Ratio 1.7 (0.9-2); Albumin Level 4.3 gm/dl (3.4-5.0); Bilirubin,Total 0.3 mg/dl (0.2-1.0); Calcium 8.9 mg/dl (8.5-10.1); Creatinine Clr Calc Pharmacy 135.5 ml/min; Est GFR (African American) 114.9 ml/min; Est GFR (Non-African American) 99.1 ml/min; Globulin 2.5 gm/dl (2.5-4.0); Potassium 3.4 mmol/L (3.5-5.1); Total Protein 6.8 gm/dl (6.0-8.3)
[2021-12-24] MEDS ORDERED: SODIUM CHLORIDE 0.9% 1000ML 1,000 ML IV ONE (00:26)
[2021-12-24 00:33] LABS: Procalcitonin < 0.05 ng/ml (0-0.5)
[2021-12-24 00:43] LABS: Bordetella parapertussis PCR Not Detected (NotDetected); Bordetella pertussis PCR Not Detected (NotDetected); Chlamydia pneumoniae PCR Not Detected (NotDetected); Coronavirus 229E PCR Not Detected (NotDetected); Coronavirus CoV-2 (COVID19)PCR Not Detected (NotDetected); Coronavirus HKU1 PCR Not Detected (NotDetected); Coronavirus NL63 PCR Not Detected (NotDetected); Coronavirus OC43PCR Not Detected (NotDetected); Human Metapneumovirus PCR Not Detected (NotDetected); Influenza A PCR Not Detected (NotDetected); Influenza B PCR Not Detected (NotDetected); Mycoplasma pneumoniae PCR Not Detected (NotDetected); Parainfluenza Virus 1 PCR Not Detected (NotDetected); Parainfluenza Virus 2 PCR Not Detected (NotDetected); Parainfluenza Virus 3 PCR Not Detected (NotDetected); Parainfluenza Virus 4 PCR Not Detected (NotDetected); Respiratory Syncytial VirusPCR Not Detected (NotDetected); Rhinovirus/Enterovirus PCR Not Detected (NotDetected)
[2021-12-24] MEDS ORDERED: OPTIRAY 320 100ml IV ONE (00:47)
[2021-12-24 01:03] LABS: Adenovirus PCR DETECTED (NotDetected)
[2021-12-24] MEDS ORDERED: dexAMETHasone**PF** 10 MG/ML VIAL IV ONE (01:21)
[2021-12-24] MEDS ORDERED: cefTRIAXone SODIUM 2,000 MG/70 ML BAG IV STA (01:21)
--- NOTE | 2021-12-24 04:33 | History & Physical Report ---
Date of Service December 24, 2021 Assessment & Plan (1) Acute respiratory failure with hypoxia: Plan: Acute respiratory failure with hypoxia/reactive airways disease with acute exacerbation/adenovirus infection- Methylprednisolone 40 mg IV every 8 hours Duonebs every 4 hours while awake and every 2 hours when necessary. Pulmicort Respules 0.5 mg inhaled twice daily Nasal cannula oxygen, titrate to keep pulse ox around 94% Guaifenesin extended release 1200mg p.o. twice daily Azithromycin 500 mg IV daily Vitamin D 125 mcg p.o. daily Zinc sulfate 220 mg p.o. daily (2) Adenovirus infection: Plan: Droplet precaution (3) Tracheomalacia, acquired: Plan: Following with pulmonology (4) KEVIN (obstructive sleep apnea): Plan: CPAP at bedtime as needed (5) Reactive airway disease with acute exacerbation: Plan: See above (6) GERD (gastroesophageal reflux disease): Plan: Continue Nexium/pantoprazole (7) Tobacco abuse disorder: Plan: Tobacco cessation counseling History of Present Illness Chief Complaint: The patient presents to the emergency department with complaint of fever, shortness of breath, dyspnea on exertion, sore throat worsening over the past 4 days. He presented to the ED today due to temperature up to 105 today Primary Care Provider: Owen Campbell MD The patient is a 31-year-old male with a past medical history including tobacco abuse disorder, acquired tracheomalacia, multiple right-sided rib fractures, right pulmonary contusion, KEVIN, reactive airways disease, history of acute hypoxemic respiratory failure, fatty liver, GERD, and cellulitis due to Staphylococcus. The patient presents with symptoms as noted above. In the emergency department he did receive the following: Normal saline 1 L, ceftriaxone 2 g IV, Tylenol 1 g p.o., normal saline 1 L, Toradol 15 mg IV, and dexamethasone 10 mg IV Allergies Allergy/AdvReac Type Severity Reaction Status Date / Time No Known Allergies Allergy Unknown Verified 12/23/21 23:07 Home Medications Medication Instructions Recorded Confirmed Type albuterol sulfate 90 mcg/actuation 2 puff INHALATION Q6H PRN 07/25/18 12/23/21 History aerosol inhaler (Ventolin HFA) esomeprazole magnesium 40 mg 40 mg PO DAILY 07/25/18 12/23/21 History capsule,delayed release (Nexium) multivitamin 1 tab PO DAILY 07/25/18 12/23/21 History tiotropium bromide 18 mcg capsule 1 cap INHALATION DAILY #90 inh 02/26/21 12/23/21 Rx with inhalation device (Spiriva with HandiHaler) budesonide-formoterol HFA 80 2 puff INHALATION BID #10.2 g 12/04/21 12/23/21 Rx mcg-4.5 mcg/actuation aerosol inhaler (Symbicort) prednisone 20 mg tablet 40 mg PO DAILY 12/23/21 12/23/21 History Past Med/Surg History Medical History (Updated 12/24/21 @ 04:43 by Anil Montes MD) Acute bronchitis Asthma Bronchitis Diarrhea Diarrhea of presumed infectious origin (10/01/14) Exacerbation of asthma Fever Hypoxia Multiple fractures of ribs of right side Salmonella dysentery Thrush, oral Surgical History H/O foot surgery Family History Other Asthma Hypertension Seasonal allergies Social History Smoking Status: Current every day smoker Tobacco Type: Cigarettes Cigarettes Per Day: 20; Hx Alcohol Use: Yes Alcohol type: beer Hx Substance Use: No Preferred Language: Czech Communication Ability: Effective Visual Impairment: No Limitations Hearing Ability: Normal Build Master Required: No Beliefs That Will Affect Care: None Current Living Situation: Parent and Family Current Living Situation Comment: dad, gram, and son current occupational status: employed Feels Safe at Home: Yes Assistive Devices: None Review of Systems Review of Systems: The patient denies chest pain, palpitations, lower extremity swelling, chills, sweats, nausea, vomiting, diarrhea , constipation, abdominal pain, pelvic pain, blood in urine or stool, dysuria, urinary frequency or urgency, lightheadedness, dizziness, headache, memory loss, loss of consciousness, rash, abnormal bruising or bleeding, imbalance, focal or generalized weakness, numbness or tingling in arms or legs, generalized arthralgias or myalgias, back or neck pain, or night sweats. The review of systems is otherwise negative other than for that already noted above, and at least 10 systems have been reviewed. Physical Exam Physical Exam: The patient is awake, alert and oriented 3, well developed and well nourished, normocephalic and atraumatic, lying in bed and in no acute distress. HEENT--PERRL, EOMI, mucous membranes and oropharynx normal. Neck--supple. No JVD. No bruits. Thyroid normal, trachea midline, no adenopathy. Heart--normal S1 and S2. No murmurs, rubs or gallops. Lungs--diminished throughout. No respiratory distress, no accessory muscle use. Abdomen--normal bowel sounds and soft. Nontender. Nondistended, no hernias or masses, no organomegaly. Extremities--no cyanosis or clubbing. No edema. Dermatologic--normal skin turgor, normal color, no abnormal lymph nodes, no rash. Neurologic--cranial nerves II through XII grossly intact. Rheumatologic--normal range of motion. Psychiatric--normal affect. Results & Data Results & Data ([facility]) Vital Signs (Past 12 Hours) Vital Signs Temp Pulse Pulse Resp BP BP Pulse Ox 12/24/21 03:28 66 20 129/67 96 12/24/21 03:00 36.8 C 79 20 121/75 95 12/24/21 02:43 36.8 C 68 18 132/71 94 12/24/21 01:00 39.0 C H 12/24/21 00:16 85 22 136/78 96 12/24/21 00:15 88 L 12/23/21 22:18 38.7 C H 103 H 22 139/66 94 Laboratory Results Laboratory Results WBC 8.32 K/uL (4.8-10.8) 12/23/21 23: RBC 4.87 M/uL (4.7-6.1) 12/23/21 23: Hgb 15.6 g/dL (14.0-18.0) 12/23/21: Hct 45.0 % (42-52) 12/23/21: MCV 92.4 fL (80-100) 12/23/21 23: MCH 32.0 pg (25-34) 12/23/21: MCHC 34.7 g/dL (32-36) 12/23/21: RDW Std Deviation 43.2 fL (36.4-46.3) 12/23/21: RDW Coeff of Anant 12.7 % (11.5-14.5) 12/23/21 Plt Count 229 K/uL (130-400) 12/23/21 MPV 9.3 fL (7.4-10.4) 12/23/21 Immature Gran % (Auto) 0.1 % 12/23/21 Neut % (Auto) 70.9 % 12/23/21: Lymph % (Auto) 17.8 % 12/23/21: [place] % (Auto) 10.8 % 12/23/21: Eos % (Auto) 0.2 % 12/23/21 Baso % (Auto) 0.2 % 12/23/21 Neut # (Auto) 5.89 K/uL (1.4-6.5) 12/23/21 Lymph # (Auto) 1.48 K/uL (1.2-3.4) 12/23/21 [place] # (Auto) 0.90 K/uL (0.11-0.59) H 12/23/21: Eos # (Auto) 0.02 K/uL (0-0.5) 12/23/21 Baso # (Auto) 0.02 K/uL (0-0.2) 12/23/21 Immature Gran # (Auto) 0.01 K/uL (0.00-0.02) 12/23/21 Sodium 137 mmol/L (136-145) 12/23/21 Potassium 3.4 mmol/L (3.5-5.1) L 12/23/21 Chloride 101 mmol/L (98-107) 12/23/21 Carbon Dioxide 27 mmol/L (21-32) 12/23/21 Anion Gap 9 (3-11) 12/23/21 BUN 20 mg/dl (6-23) 12/23/21 Creatinine 1.00 mg/dl (0.6-1.4) 12/23/21 Est Cr Clr Drug Dosing 135.5 ml/min 12/23/21 Est GFR ( Amer) 114.9 ml/min 12/23/21 23: Est GFR (Non-Af Amer) 99.1 ml/min 12/23/21: BUN/Creatinine Ratio 20.0 (10-20) 12/23/21: Glucose 98 mg/dl (70-99(Fasting)) 12/23/21: Lactate 1.5 mmol/L (0.4-2.0) 12/24/21 00:11 Calcium 8.9 mg/dl (8.5-10.1) 12/23/21: Total Bilirubin 0.3 mg/dl (0.2-1.0) 12/23/21: AST 22 U/L (13-39) 12/23/21: ALT 33 U/L (7-52) 12/23/21: Alkaline Phosphatase 51 U/L (34-104) 12/23/21: Total Protein 6.8 gm/dl (6.0-8.3) 12/23/21: Albumin 4.3 gm/dl (3.4-5.0) 12/23/21: Globulin 2.5 gm/dl (2.5-4.0) 12/23/21: Albumin/Globulin Ratio 1.7 (0.9-2) 12/23/21: Procalcitonin < 0.05 ng/ml (0-0.5) 12/23/21: Adenovirus (PCR) DETECTED (NotDetected) A* 12/23/21: B. pertussis DNA (PCR) Not Detected (NotDetected) 12/23/21: B.parapertussis DNA PCR Not Detected (NotDetected) 12/23/21 23: C. pneumoniae DNA (PCR) Not Detected (NotDetected) 12/23/21 23: Coronavirus OC43 (PCR) Not Detected (NotDetected) 12/23/21 23: Coronavirus HKU1 (PCR) Not Detected (NotDetected) 12/23/21 23: Coronavirus 229E (PCR) Not Detected (NotDetected) 12/23/21 23: SARS-CoV-2 (PCR) Not Detected (NotDetected) 12/23/21 23:31 Coronavirus NL63 (PCR) Not Detected (NotDetected) 12/23/21 23:31 Monoscreen Negative (Negative) 12/23/21 23:29 Human Metapneumovir PCR Not Detected (NotDetected) 12/23/21 23:31 Influenza Type A (PCR) Not Detected (NotDetected) 12/23/21 23:31 Influenza Type B (PCR) Not Detected (NotDetected) 12/23/21 23:31 M. pneumoniae (PCR) Not Detected (NotDetected) 12/23/21 23:31 Parainfluenza 1 (PCR) Not Detected (NotDetected) 12/23/21 23:31 Parainfluenza 2 (PCR) Not Detected (NotDetected) 12/23/21 23:31 Parainfluenza 3 (PCR) Not Detected (NotDetected) 12/23/21 23:31 Parainfluenza 4 (PCR) Not Detected (NotDetected) 12/23/21 23:31 RSV (PCR) Not Detected (NotDetected) 12/23/21 23:31 Entero/Rhino (PCR) Not Detected (NotDetected) 12/23/21 23:31 Code Status & VTE Plan Code Status Full code VTE Prophylaxis Plan VTE Prophylaxis will be ordered: Yes PG Care Time/CCT Total # of Minutes Spent Total Time Spent with Patient: Total time spent is greater than 50% in coordination of care (as documented) at patient's floor/unit and/or counseling patient: Coding Level of Care Code INT OBSERVATION CARE 70M LVL 3 Diagnoses Acute respiratory failure with hypoxia J96.01 Adenovirus infection B34.0 Tracheomalacia, acquired J39.8 KEVIN (obstructive sleep apnea) G47.33 Reactive airway disease with acute exacerbation J45.41 Asthma severity: moderate Asthma persistence: persistent GERD (gastroesophageal reflux disease) K21.9 Tobacco abuse disorder Z72.0 (1) Reactive airway disease with acute exacerbation Asthma severity: moderate Asthma persistence: persistent Qualified Code(s): J45.41 - Moderate persistent asthma with (acute) exacerbation
[2021-12-24] MEDS ORDERED: ACETAMINOPHEN 325 MG TAB PO PRN (06:52)
[2021-12-24] MEDS ORDERED: ONDANSETRON INJ 2 MG/ML 2 ML VIAL IV PRN (06:52)
[2021-12-24] MEDS: BUDESONIDE 0.5 MG/2 ML VIAL (PULMICORT) NEB SCH ×2 (07:18→19:29)
[2021-12-24] MEDS: ALBUT/IPRATROP 3MG/0.5MG NEB 3 ML VIAL NEB SCH ×4 (07:20→19:29)
[2021-12-24] MEDS ORDERED: POTASSIUM CHLORIDE CRTAB 20 MEQ TABCR PO STA (08:02)
--- NOTE | 2021-12-24 08:02 | CT Scan Report ---
CT OF THE NECK WITH IV CONTRAST CLINICAL HISTORY: Sore throat, fever and cough. COMPARISON STUDY: Cervical spine CT October 29, 2019. TECHNIQUE: Following IV administration of 93 mL of Optiray, helical axial images of the neck were ob tained. Sagittal and coronal reconstructions were viewed. Automated exposure control was utilized f or the study. A dose lowering technique was utilized adhering to the principles of ALARA. CT DOSE: 681.82 mGy.cm FINDINGS: Visualized portions of the intracranial contents are unremarkable. Small mucous retention cyst within the left maxillary sinus is present. Mastoid air cells are clear. There is no fluid colle ction within the neck to suggest an abscess. There is no soft tissue gas. No prevertebral edema is pr esent. The bilateral palatine tonsils are prominent. There are mildly enlarged bilateral cervical lym ph nodes. These nodes measure up to 1.4 cm in short axis diameter. Epiglottis is normal. Lung apices are unremarkable. Major vasculature of the neck is patent. No acute fracture or suspicious lesion is identified within visualized skeletal structures. Parotid and submandibular glands are unremarkable. Adenoids are also prominent. Uvula is thickened. IMPRESSION: 1. Enlarged palatine tonsils, adenoids and uvula. The findings may reflect tonsillitis/pharyngitis. N o fluid collection to suggest abscess. 2. Mildly enlarged bilateral cervical lymph nodes which are likely reactive. ACT 112: Negative or not required by law. Electronically signed by: Jez Carpio M.D. 12/24/2021 8:00 AM
[2021-12-24] MEDS: methylPREDNISolone 40 MG in SYRINGE 0 ML IV SCH ×3 (08:35→22:48)
[2021-12-24] MEDS: guaiFENesin 600 MG TABCR PO SCH ×2 (08:35→20:36)
[2021-12-24] MEDS: ZINC SULFATE 220 MG CAPSULE PO SCH (08:35)
[2021-12-24] MEDS: PANTOprazole 40 MG TAB PO SCH (08:36)
[2021-12-24] MEDS: AZITHROMYCIN 500 MG in DEXTROSE 5% 250 ML IV SCH (08:36)
[2021-12-24] MEDS: FLUTICASONE/VILANTEROL 100/25MCG 14 PUFFS/INHALER INH SCH (08:36)
[2021-12-24] MEDS: MULTIVITAMIN TAB PO SCH (08:36)
[2021-12-24] MEDS: CHOLECALCIFEROL 5,000 UNITS 125 MCG TAB PO SCH (08:36)
--- NOTE | 2021-12-24 09:32 | XRay Report ---
XR chest 1V portable HISTORY: 31 years-old Male fever acute fever COMPARISON: Chest radiograph 11/10/2019 TECHNIQUE: Portable AP view of the chest FINDINGS: The cardiomediastinal and hilar silhouettes are within normal limits. No pneumothorax, pleural effusi on, airspace consolidation or overt pulmonary edema. Bones of the chest appear grossly intact. IMPRESSION: No acute process. ACT 112: Negative or not required by law. The above report was generated using voice recognition software. It may contain grammatical, syntax o r spelling errors. Electronically signed by: Alonzo Eaton M.D. 12/24/2021 9:30 AM
--- NOTE | 2021-12-24 12:06 | Hospitalist Progress Note ---
Date of Service December 24, 2021 Assessment & Plan (1) Acute respiratory failure with hypoxia: Plan: Acute respiratory failure with hypoxia/reactive airways disease with acute exacerbation/adenovirus infection- * Methylprednisolone 40 mg IV every 8 hours * Duonebs every 4 hours while awake and every 2 hours when necessary * Pulmicort Respules 0.5 mg inhaled twice daily * Nasal cannula oxygen, titrate to keep pulse ox around 94% * 16: Titrated from 5 L to 2 L; 02 sat 92-95% * Guaifenesin extended release 1200mg p.o. twice daily * Azithromycin 500 mg IV daily * Vitamin D 125 mcg p.o. daily * Zinc sulfate 220 mg p.o. daily (2) Adenovirus infection: Plan: * Droplet precaution (3) Tracheomalacia, acquired: Plan: * Following with pulmonology (4) KEVIN (obstructive sleep apnea): Plan: * CPAP at bedtime as needed (5) Reactive airway disease with acute exacerbation: Plan: See above (6) GERD (gastroesophageal reflux disease): Plan: * Continue Nexium/pantoprazole (7) Tobacco abuse disorder: Plan: * Tobacco cessation counseling Admission and Anticipated Discharge Date Admission Date: December 24, 2021 Supervising Physician Co-Signing Physician Notes I also saw the patient and confirmed fonseca portions of the history and physical examination. I agree with the impression and plan as noted in the resident documentation. This morning the patient feels quite better when compared to his initial presentation. He notes less sore throat. Less myalgias. He notes that his fevers resolved and this has made him feel quite better. Exam 113/69, 73, 18, 36.8, 94% on nasal cannula 2 L/min Voice is mildly hoarse, but easily understood. He has no difficulty speaking in full and complete sentences. Nonlabored respirations. Tonsils mildly enlarged, slight erythema, small amount of exudate appreciated. Heart regular rate and rhythm. Lungs clear with nonlabored respirations Data WBC 8.32, hemoglobin 15.6, platelet count 229. Potassium 3.4. Imaging CT of the neck with contrast showed tonsillar enlargement as well as enlargement of adenoids and uvula. No fluid collection to suggest abscess. Also noted mildly enlarged bilateral cervical lymph nodes. PCR positive for adenovirus. Acute respiratory failure with hypoxia/COPD, acute on chronic, secondary to enterovirus infection Will attempt to wean oxygen. When initially saw this morning, he was 97% on 5 L. Continue methylprednisolone, consider transitioning to p.o. prednisone. Continue azithromycin; note tonsillar exudate which could represent a secondary strep infection. Overall, marked improvement since admission. We will continue to monitor as we decrease supplemental oxygen. Zayra Bryant is feeling much improved today. He states that he is able to breathe better and his sore throat has improved. He has not had any dysphagia, shortness of breath, wheezing, chest pain, palpitations. Review of Systems Review of Systems: see HPI Physical Exam Physical Exam: The patient is awake, alert and oriented 3, well developed and well nourished, normocephalic and atraumatic, lying in bed and in no acute distress. HEENT--PERRL, EOMI, mucous membranes moist. Oropharynx mildly erythematous, enlarged tonsills. whitish exudate seen on tonsils. Neck--supple. Thyroid normal, trachea midline, no adenopathy. Heart--normal S1 and S2. No murmurs, rubs or gallops. Lungs--diminished throughout. No respiratory distress, no accessory muscle use. Abdomen--normal bowel sounds and soft. Nontender. Nondistended. Extremities--no cyanosis or clubbing. No edema. Dermatologic--normal skin turgor, normal color, no abnormal lymph nodes, no rash. Neurologic--cranial nerves II through XII grossly intact. Psychiatric--normal affect. Results & Data Results & Data ([facility]) Vital Signs (Past 12 Hours) Vital Signs Temp Pulse Pulse Resp BP BP Pulse Ox 12/24/21 11:32 36.8 C 73 18 113/69 94 12/24/21 11:13 75 20 95 12/24/21 08:56 68 12/24/21 07:21 67 20 97 12/24/21 07:00 36.3 C L 58 L 18 108/71 97 12/24/21 06:44 36.3 C L 58 L 18 108/71 97 12/24/21 05:00 58 L 18 126/59 L 94 12/24/21 03:28 66 20 129/67 96 12/24/21 03:00 36.8 C 79 20 121/75 95 12/24/21 02:43 36.8 C 68 18 132/71 94 05/16/22 01:00 39.0 C H 05/16/22 00:16 85 22 136/78 96 12/24/21 00:15 88 L (1) Reactive airway disease with acute exacerbation Asthma persistence: persistent Asthma severity: moderate Qualified Code(s): J45.41 - Moderate persistent asthma with (acute) exacerbation
--- NOTE | 2021-12-25 06:34 | Discharge Summary ---
Date of Service December 25, 2021 Admission HPI Per Admitting Provider The patient is a 31-year-old male with a past medical history including tobacco abuse disorder, acquired tracheomalacia, multiple right-sided rib fractures, right pulmonary contusion, KEVIN, reactive airways disease, history of acute hypoxemic respiratory failure, fatty liver, GERD, and cellulitis due to Staphylococcus. The patient presents with symptoms as noted above. In the emergency department he did receive the following: Normal saline 1 L, ceftriaxone 2 g IV, Tylenol 1 g p.o., normal saline 1 L, Toradol 15 mg IV, and dexamethasone 10 mg IV Principal Diagnosis Acute hypoxemic respiratory failure secondary to COPD exacerbation/viral pneumonia Discharge Exam Constitutional WD/WN, vitals as above Eyes + anicteric sclerae ENMT Mallampati Class: III Throat: uvula midline Neck trachea midline, no thyromegaly Respiratory normal respiratory effort; no respiratory distress Auscultation: + wheezes Cardiovascular RRR, no murmur, no edema Gastrointestinal (Abdomen) normal bowel sounds, soft, nontender, no hepatosplenomegaly Musculoskeletal Head/Neck/Chest: normocephalic and head atraumatic Skin no rashes, warm and dry Neurologic moves all extremities Psychiatric A+Ox3, euthymic affect Discharge Data Allergies Allergy/AdvReac Type Severity Reaction Status Date / Time No Known Allergies Allergy Unknown Verified 12/23/21 23:07 Consultations 12/24/21 01:55 ED Decision to Admit Stat Ordered Studies 12/23/21 23:34 CT soft tissue neck w con Urgent Hospital Course (1) Acute respiratory failure with hypoxia: Acute respiratory failure with hypoxia/reactive airways disease with acute exacerbation/adenovirus infection- * Methylprednisolone 40 mg IV every 8 hours, discharged on 3 days of additional prednisone * Duonebs every 4 hours while awake and every 2 hours when necessary * Pulmicort Respules 0.5 mg inhaled twice daily * Nasal cannula oxygen, titrate to keep pulse ox around 94% * 12/24: Titrated from 5 L to 2 L; 02 sat 92-95%, without oxygen supplementation at the time of discharge * Guaifenesin extended release 1200mg p.o. twice daily * Azithromycin 500 mg IV daily, sent 1 additional dose to the pharmacy to finish a 3-day course of 500 mg daily * Vitamin D 125 mcg p.o. daily * Zinc sulfate 220 mg p.o. daily (2) Adenovirus infection: * Droplet precaution (3) Tracheomalacia, acquired: * Following with pulmonology (4) KEVIN (obstructive sleep apnea): * CPAP at bedtime as needed (5) Reactive airway disease with acute exacerbation: See above (6) GERD (gastroesophageal reflux disease): * Continue Nexium/pantoprazole (7) Tobacco abuse disorder: * Tobacco cessation counseling Total Time Total Time Spent Total Time Spent (In Minutes): 30 Discharge Plan Discharge Items Patient Disposition: Home - Self-Care Reason For Visit: ADENOVIRUS URI, HYPOXIA Discharge Diagnosis: Hypoxia secondary to viral pneumonia, COPD exacerbation Activity: Per Instructions section Non-emergency contact: Primary Care Provider Call non-emergency contact if: you have any medication questions, your symptoms worsen and your temperature is above 101.5 Follow-up/Referrals: Owen Campbell MD [Primary Care Provider] - 01/01/22 8:50 am (APPT WITH [facility]) Diet: Regular Addtl Attending Provider Instructions: You were seen in the hospital for shortness of breath and feeling generally unwell. While you were here is found that you had a viral pneumonia secondary to adenovirus. This may have also exacerbated your COPD. While you are here you were given breathing treatments as well as steroids and an antibiotic called azithromycin. After observing you for 24 hours it seems that your oxygen dependency originally came in on has resolved and you are back on room air by the time of discharge. At this time we feel it is safe for you to return home. We are sending you home with steroids for an additional 3 days as well as 1 more dose of azithromycin that you will take tomorrow. Please follow-up with your primary care provider within 1 week for further evaluation and recheck. We strongly recommend that you discontinue tobacco use as this is the largest factor that led to your hypoxia or low oxygen level. It has been a pleasure to be a part of your care and we wish you the best of both your health and recovery. Pending Studies at Discharge: No Stand-Alone Forms: My [facility] Refinder by [employer], Work/School Release, Smoking Cessation Medications and DC Order Prescriptions: New prednisone 20 mg tablet 20 mg PO BID 3 Days Qty: 6 RF: 0 azithromycin 500 mg tablet 500 mg PO DAILY 1 Days Qty: 1 RF: 0 Continued budesonide-formoterol [Symbicort] 80-4.5 mcg/actuation HFA aerosol inhaler 2 puff inhalation BID Qty: 10.2 RF: 5 Spiriva with HandiHaler 18 mcg capsule, w/inhalation device 1 cap inhalation DAILY Qty: 90 RF: 2 multivitamin Tablet 1 tab PO DAILY RF: 0 esomeprazole magnesium [Nexium] 40 mg Capsule,Delayed Release(Dr/Ec) 40 mg PO DAILY RF: 0 albuterol sulfate [Ventolin HFA] 90 mcg/actuation Hfa Aerosol Inhaler 2 puff INHALATION Q6H PRN (Reason: Shortness Of Breath) RF: 0 Discontinued prednisone 20 mg tablet 40 mg PO DAILY RF: 0 Discharge Orders: Discharge Order (Routine); Ordered 12/25/21 Ordered By: Nile Smith Admission Data Admit Date/Time: 12/24/21 04:32 Attending Provider: Truong Gomes Admit Provider: Anil Montes Primary Care Provider: Owen Campbell Other Providers: Anil Montes Other Interventions: Discharge Summary Assessment (RN) Last Done: 12/25/21 12:34 Supervising Physician Co-Signing Physician Notes Attending attestation Pt seen and examined in concert with Dr. Smith. In agreement with the documented findings as noted in the resident documentation with any exceptions or additions as noted here. Continued improvement to pharyngitis, fatigue, cough. On examination, VS reviewed, S1/S2 nl RRR no MCG. mild end exp wheeze. Abd NT/ND BS+ve AHRF w/ hypoxia/COPD with acute exacerbation in the setting of adenovirus infection - STRONGLY counseled to continue his smoking cessation journey. Complete course of prednisone burst and azithromycin Else see resident documentation as noted. Total attending time spent with this patient's care on the day of discharge: 35 minutes.
[2021-12-25] MEDS: BUDESONIDE 0.5 MG/2 ML VIAL (PULMICORT) NEB SCH (07:20)
[2021-12-25] MEDS: ALBUT/IPRATROP 3MG/0.5MG NEB 3 ML VIAL NEB SCH ×2 (07:20→11:14)
[2021-12-25 08:04] LABS: Basophils # (auto) 0.01 K/uL (0-0.2); Basophils % (auto) 0.1 %; Hematocrit (blood only) 44.5 % (42-52); Immature Granulocytes # (auto) 0.03 K/uL (0.00-0.02); Immature Granulocytes % (auto) 0.3 %; Lymphocytes # (auto) 1.28 K/uL (1.2-3.4); Lymphocytes % (auto) 14.3 %; Mean Corpuscular Hemoglobin 30.5 pg (25-34); Mean Corpuscular Hgb Conc 33.7 g/dL (32-36); Mean Corpuscular Volume 90.6 fL (80-100); Mean Platelet Volume 9.2 fL (7.4-10.4); Monocytes % (auto) 8.9 %; Neutrophils # (auto) 6.85 K/uL (1.4-6.5); Neutrophils % (auto) 76.4 %; Platelet Count 234 K/uL (130-400); RDW Standard Deviation 42.9 fL (36.4-46.3); Red Blood Count 4.91 M/uL (4.7-6.1); White Blood Count 8.97 K/uL (4.8-10.8)
[2021-12-25] MEDS: methylPREDNISolone 40 MG in SYRINGE 0 ML IV SCH (08:37)
[2021-12-25] MEDS: AZITHROMYCIN 500 MG in DEXTROSE 5% 250 ML IV SCH (08:40)
[2021-12-25 08:49] LABS: Albumin Level 3.9 gm/dl (3.4-5.0); BUN Creatinine Ratio 19.7 (10-20); Calcium 8.9 mg/dl (8.5-10.1); Creatinine Clr Calc Pharmacy 178.3 ml/min; Est GFR (African American) 139.9 ml/min; Est GFR (Non-African American) 120.7 ml/min; Magnesium 2.2 mg/dl (1.7-2.4); Phosphorus 3.7 mg/dl (2.5-4.9); Potassium 4.1 mmol/L (3.5-5.1)
[2021-12-25] MEDS: FLUTICASONE/VILANTEROL 100/25MCG 14 PUFFS/INHALER INH SCH (10:19)
[2021-12-25] MEDS: PANTOprazole 40 MG TAB PO SCH (10:20)
[2021-12-25] MEDS: guaiFENesin 600 MG TABCR PO SCH (10:20)
[2021-12-25] MEDS: MULTIVITAMIN TAB PO SCH (10:20)
[2021-12-25] MEDS: CHOLECALCIFEROL 5,000 UNITS 125 MCG TAB PO SCH (10:20)
[2021-12-25] MEDS: ZINC SULFATE 220 MG CAPSULE PO SCH (10:20)
== END 2021-12-25 14:10 | disposition home or self-care (01) ==
LOC: 2W 22:15 → ED 22:15 → SUATTDRO 12-24 04:32 → 2W 12-24 06:40 → 3W 12-25 02:52